=== PATIENT | male | born 1970 | race Caucasian/White ===

== ENCOUNTER 2024-07-10 10:41 | Inpatient (IN) ==
--- NOTE | 2024-07-10 11:22 | Emergency Department Note ---
Impression & Plan Cardiac asystole, Syncope and collapse, Headache ED Provider Note NAME: SHWETHA BRADFORD AGE: 53 SEX: Male INFORMANT: Patient and ED PROVIDER(S): Martinez Fan MD CHIEF COMPLAINT: Syncope PLAN: Disposition: Admitted Outpatient prescription management: none Referral: None MEDICAL DECISION MAKING: Patient presented after a syncopal episode. Reports he was feeling fine prior to the event and then collapsed. He had a nonfocal neurologic examination and no gross abnormalities on vital signs. Patient's ECG did show some T wave inversions anteriorly and inferiorly. When compared to his last ECG done in the [facility] system these were new. Patient did not have any chest pain, neck pain, arm pain or back pain to suggest cardiac ischemia. The patient was treated symptomatically with a dose of Zofran and Dilaudid and I discussed imaging. Given that his syncope event coupled with headache afterwards he underwent CT imaging. There is no signs of trauma. No ICH, SAH, or aneurysm noted. No dissection. I did discuss this with radiology. During the workup after CT imaging was completed the patient was resting in bed and then was noted to have significant asystolic pause. CODE BLUE was called. Patient's cardiac monitoring revealed approximately a 23-second pause. Repeat ECG was performed pacemaker pads were placed. Patient spontaneously recovered before CPR or atropine can be given. Consult was placed with [facility] cardiology, Dr. Billy. We were discussing the patient's case and the patient had a second episode. I asked for cardiology to come to the emergency department for in person evaluation. Patient was attended to and this episode was much more brief, lasting about 6 seconds and patient recovered spontaneously. Third ECG was performed. Similar inferior changes noted but some improvement noted anteriorly. No ST elevation noted. Patient's laboratory studies including cardiac troponin x 2 were both normal. D-dimer negative. Dr. Shaikh evaluated patient bedside and did order a stat echo. In light of the significant pauses he asked for consultation with interventional cardiology for temporary pacemaker placement and coronary angiography. I did discuss the case with Dr. Spence. He evaluated patient in the ER. Patient was taken emergently to the catheterization suite for further management. I also placed a consult with the [facility] hospitalist service. Discussed the case and patient will be admitted under Dr. Alejandre for additional workup and evaluation. 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 Vital Signs: reviewed and remarkable for mild hypertension Additional History obtained from: Patient's . Patient has been slight confusion noted at home. There is no slurred speech. No unilateral weakness described. Chronic Medical/Social Conditions affecting care: none Prior/ Outside/ External records reviewed: none Differential Diagnosis: Vasovagal event, dehydration, infection, hypoglycemia, electrolyte abnormalities, cardiac sources, intracerebral event, pulmonary embolism, seizure, toxicologic, neurologic, as well as other pathologies. Diagnostics, independently interpreted by me: ECG: Twelve-lead ECG #1 reveals sinus bradycardia 56 bpm. Inferior T wave inversion is present. When compared to ECG from the [facility] system September 2023 the inferior changes are new. Subtle nonspecific anterior changes noted as well. No ST elevation or depression noted. Twelve-lead ECG #2 reveals a normal sinus rhythm with sinus arrhythmia at [address] with inferoanterior changes. Slightly more pronounced when compared to ECG #1. No ST elevation or depression. Twelve-lead ECG #3. Normal sinus rhythm at 60 bpm. Inferior T wave inversions noted. Anteriorly T wave abnormality improved. No ST elevation. No ST depression. Cardiac Monitoring: Cardiac monitoring ordered by me: The patient was placed on continuous cardiac monitoring and observed. It revealed a prolonged asystolic pause of approximately 23 seconds. Cardiac monitoring revealed a second event of about 6 seconds. Medical decision rules: none Imaging studies: Head CT:A noncontrast CT scan of the head was performed and was negative for tumor, fracture, intracranial hemorrhage, or other acute pathology. I refer you to the EMR for further details. HPI: 53 year old Male arrives for evaluation of syncope. This started just prior to arrival and occurred after lifting weights. The patient also notes the following associated symptoms, severe headache after waking, brief lightheadedness prior to event. The patient has taken no medication for relieving factors. Current pain is rated as 7/10. Pt denies flu symptoms, fevers, chills, diaphoresis, visual changes, neck pain, chest pain, breathing difficulties, nausea, vomiting, abdominal pain, back pain, melena, hematochezia, urinary symptoms, travel, hx/famhx of aneurysm/PE, numbness, weakness, lymphadenopathy, rash, or other complaints. . PAST MEDICAL HISTORY: See Below, pt denies PAST SURGICAL HISTORY: See Below, SOCIAL HISTORY: See Below, HOME MEDICATIONS: See Below ALLERGIES: See Below VITALS: See Below PHYSICAL EXAMINATION: GENERAL: Awake, alert, uncomfortable-appearing, in no distress HENT: Normocephalic, atraumatic. Oropharynx unremarkable. EYES: Normal conjunctiva. Sclera non-icteric. PERRL. EOMI NECK: Inspection normal. Non-tender. Supple. No nuchal rigidity. FROM. No masses. RESPIRATORY: Clear to auscultation. No wheezes. No rales. Normal respiratory effort. CARDIAC: Normal rate. Normal rhythm. No murmurs. No rubs. Extremities warm and well perfused. Pulses equal. No JVD. GI: Soft, non-distended. No tenderness to palpation. No rebound or guarding. No masses. RECTAL: Deferred. MUSCULOSKELETAL: Atraumatic. Chest examination reveals no tenderness. The back is symmetrical on inspection without obvious abnormality. There is no CVA tenderness to palpation. No joint edema. LOWER EXTREMITIES: Calves are equal size bilaterally and non-tender. No edema. No discoloration. NEURO: Normal sensorium. No sensory or motor deficits noted. Normal rapid alternating movements. Normal heel canseco. SKIN: No rash or jaundice noted. PROCEDURES: none CRITICAL CARE: I have personally spent 45 minutes of critical care time in the direct management of this patient. This includes bedside care, interpretation of diagnostic studies, and testing, discussion with consultants, patient, and family members, and other required patient management activities. These minutes are in excess of all separately billable procedures. OBSERVATION NOTE: none Past Med/Surg History Problem List (Updated 07/10/24 @ 17:49 by Martinez Fan MD) Cardiac asystole (Acute) Syncope Bradycardia Headache (Acute) Syncope and collapse (Acute) Medical History GERD (gastroesophageal reflux disease) Kidney stones Surgical History Hx of tonsillectomy History of colonoscopy History of dental surgery Family History Father Heart disease Social History (Updated 07/10/24 @ 16:36 by Angie García PA-C) Smoking Status: Never smoker Second Hand Exposure: No; Do You Dip or Chew Tobacco: No; Tobacco Cessation Education Requested by Patient: No Hx Alcohol Use: Yes Alcohol type: beer, wine and hard liquor Alcohol Intake Frequency: 4 or More x per/Week Alcohol Intake Frequency Comment: 1-2 drinks/ night Hx Substance Use: No Preferred Language: Arabic Communication Ability: Effective Glass Carrier Required: No Beliefs That Will Affect Care: None Current Living Situation: Spouse Other Information That Helps Us Care for You: No Feels Safe at Home: Yes Safety Concerns: Feels Safe At This Time Assistive Devices: None Allergies Allergies Allergy/AdvReac Type Severity Reaction Status Date / Time No Known Allergies Allergy Unverified 09/20/18 01:05 Home Meds Home Medications Medication Instructions Recorded Confirmed hydrocodone 5 mg-acetaminophen 325 1 tab PO Q6 PRN Pain 09/20/18 09/20/18 mg tablet prednisone 10 mg tablet 10 mg PO UD 09/20/18 09/20/18 Results & Data (ED) Vital Signs Vital Signs - 24 hr 07/10/24 10:52 07/10/24 11:08 07/10/24 11:08 Temperature 36.0 C L Temperature Source Skin Pulse Rate 61 Pulse Rate from SpO2 Sensor Pulse Rhythm Regular Pulse Strength Normal Respiratory Rate 20 Respiratory Effort / Characteristics Non-Labored Spontaneous Respiratory Depth Normal Respiratory Pattern Regular Blood Pressure 164/82 H 143/100 H 143/100 H Blood Pressure Mean 109 110 110 Pulse Oximetry 97 Oxygen Delivery Method Room Air Sepsis Recent Fever Within 48 Hours No Sepsis New/Unexplained Change in Mental Status N/A Sepsis Action Taken by Nursing No Action Required 07/10/24 11:12 07/10/24 11:27 07/10/24 11:30 Temperature Temperature Source Pulse Rate 55 L 61 Pulse Rate from SpO2 Sensor 55 L Pulse Rhythm Pulse Strength Respiratory Rate 17 Respiratory Effort / Characteristics Respiratory Depth Respiratory Pattern Blood Pressure 147/95 H Blood Pressure Mean 110 Pulse Oximetry 96 Oxygen Delivery Method Sepsis Recent Fever Within 48 Hours Sepsis New/Unexplained Change in Mental Status Sepsis Action Taken by Nursing 07/10/24 11:30 07/10/24 11:30 07/10/24 11:30 Temperature Temperature Source Pulse Rate Pulse Rate from SpO2 Sensor Pulse Rhythm Pulse Strength Respiratory Rate Respiratory Effort / Characteristics Respiratory Depth Respiratory Pattern Blood Pressure 147/95 H 147/95 H 147/95 H Blood Pressure Mean 110 110 110 Pulse Oximetry Oxygen Delivery Method Sepsis Recent Fever Within 48 Hours Sepsis New/Unexplained Change in Mental Status Sepsis Action Taken by Nursing 07/10/24 11:30 07/10/24 11:48 07/10/24 12:00 Temperature Temperature Source Pulse Rate 57 L 63 Pulse Rate from SpO2 Sensor 56 L 60 Pulse Rhythm Pulse Strength Respiratory Rate 19 14 Respiratory Effort / Characteristics Respiratory Depth Respiratory Pattern Blood Pressure 154/78 H Blood Pressure Mean 114 Pulse Oximetry 97 93 Oxygen Delivery Method Sepsis Recent Fever Within 48 Hours Sepsis New/Unexplained Change in Mental Status Sepsis Action Taken by Nursing 07/10/24 12:00 07/10/24 12:12 07/10/24 12:21 Temperature Temperature Source Pulse Rate 58 L 55 L Pulse Rate from SpO2 Sensor 58 L 55 L Pulse Rhythm Pulse Strength Respiratory Rate 16 17 Respiratory Effort / Characteristics Respiratory Depth Respiratory Pattern Blood Pressure 154/78 H Blood Pressure Mean 114 Pulse Oximetry 96 93 Oxygen Delivery Method Room Air Sepsis Recent Fever Within 48 Hours Sepsis New/Unexplained Change in Mental Status Sepsis Action Taken by Nursing 07/10/24 12:23 07/10/24 12:24 07/10/24 12:30 Temperature Temperature Source Pulse Rate 0 L Pulse Rate from SpO2 Sensor Pulse Rhythm Pulse Strength Respiratory Rate 27 H Respiratory Effort / Characteristics Respiratory Depth Respiratory Pattern Blood Pressure 172/89 H Blood Pressure Mean 107 Pulse Oximetry Oxygen Delivery Method Sepsis Recent Fever Within 48 Hours Sepsis New/Unexplained Change in Mental Status Sepsis Action Taken by Nursing 07/10/24 12:33 07/10/24 12:35 07/10/24 12:36 Temperature Temperature Source Pulse Rate 74 68 Pulse Rate from SpO2 Sensor 72 68 Pulse Rhythm Pulse Strength Respiratory Rate 20 12 Respiratory Effort / Characteristics Respiratory Depth Respiratory Pattern Blood Pressure 155/90 H Blood Pressure Mean 116 Pulse Oximetry 98 97 Oxygen Delivery Method Room Air Room Air Sepsis Recent Fever Within 48 Hours Sepsis New/Unexplained Change in Mental Status Sepsis Action Taken by Nursing 07/10/24 12:39 07/10/24 12:45 07/10/24 12:47 Temperature Temperature Source Pulse Rate 76 0 L Pulse Rate from SpO2 Sensor 75 Pulse Rhythm Pulse Strength Respiratory Rate 28 H Respiratory Effort / Characteristics Respiratory Depth Respiratory Pattern Blood Pressure 150/85 H Blood Pressure Mean 117 Pulse Oximetry 96 Oxygen Delivery Method Room Air Sepsis Recent Fever Within 48 Hours Sepsis New/Unexplained Change in Mental Status Sepsis Action Taken by Nursing 07/10/24 12:50 07/10/24 12:51 07/10/24 12:55 Temperature Temperature Source Pulse Rate 63 Pulse Rate from SpO2 Sensor 63 Pulse Rhythm Pulse Strength Respiratory Rate 17 Respiratory Effort / Characteristics Respiratory Depth Respiratory Pattern Blood Pressure 153/94 H 154/84 H Blood Pressure Mean 116 120 Pulse Oximetry 97 Oxygen Delivery Method Room Air Sepsis Recent Fever Within 48 Hours Sepsis New/Unexplained Change in Mental Status Sepsis Action Taken by Nursing 07/10/24 13:00 07/10/24 13:05 07/10/24 13:06 Temperature Temperature Source Pulse Rate 72 Pulse Rate from SpO2 Sensor Pulse Rhythm Pulse Strength Respiratory Rate 21 Respiratory Effort / Characteristics Respiratory Depth Respiratory Pattern Blood Pressure 162/99 H 167/84 H Blood Pressure Mean 113 121 Pulse Oximetry Oxygen Delivery Method Sepsis Recent Fever Within 48 Hours Sepsis New/Unexplained Change in Mental Status Sepsis Action Taken by Nursing 07/10/24 13:09 07/10/24 13:10 07/10/24 13:15 Temperature Temperature Source Pulse Rate 74 Pulse Rate from SpO2 Sensor 74 Pulse Rhythm Pulse Strength Respiratory Rate 17 Respiratory Effort / Characteristics Respiratory Depth Respiratory Pattern Blood Pressure 161/84 H 165/100 H Blood Pressure Mean 103 125 Pulse Oximetry 97 Oxygen Delivery Method Room Air Sepsis Recent Fever Within 48 Hours Sepsis New/Unexplained Change in Mental Status Sepsis Action Taken by Nursing 07/10/24 13:15 07/10/24 13:20 07/10/24 13:33 Temperature Temperature Source Pulse Rate 66 Pulse Rate from SpO2 Sensor Pulse Rhythm Pulse Strength Respiratory Rate Respiratory Effort / Characteristics Respiratory Depth Respiratory Pattern Blood Pressure 165/100 H 154/92 H Blood Pressure Mean 125 101 Pulse Oximetry Oxygen Delivery Method Room Air Sepsis Recent Fever Within 48 Hours Sepsis New/Unexplained Change in Mental Status Sepsis Action Taken by Nursing Laboratory Data 07/10/24 11:11 07/10/24 11:11 Lab Results 07/10/24 07/10/24 07/10/24 Range/Units 11:11 11:44 12:30 WBC 6.17 (4.8-10.8) K/ul RBC 5.01 (4.70-6.10) M/uL Hgb 15.1 (14.0-18.0) g/dl Hct 44.9 (42.0-52.0) % MCV 89.6 (80.0-100.0) fL MCH 30.1 (25.0-34.0) pg MCHC 33.6 (32.0-36.0) g/dL RDW Std Deviation 38.7 (36.4-46.3) fL RDW Coeff of Stacey 11.9 (11.5-14.5) % Plt Count 151 (130-400) K/uL MPV 11.0 (9.4-12.4) fL Immature Gran % (Auto) 0.3 % Neut % (Auto) 70.9 % Lymph % (Auto) 18.8 % [place] % (Auto) 8.1 % Eos % (Auto) 1.1 % Baso % (Auto) 0.8 % Neut # (Auto) 4.37 (1.40-6.50) K/uL Lymph # (Auto) 1.16 L (1.20-3.40) K/uL [place] # (Auto) 0.50 (0.11-0.59) K/uL Eos # (Auto) 0.07 (0.00-0.50) K/uL Baso # (Auto) 0.05 (0.00-0.20) K/uL Immature Gran # (Auto) 0.02 (0.01-0.20) K/uL D-Dimer < 190 (0-500) ug/L FEU Sodium 134 L (136-145) mmol/L Potassium 4.1 (3.5-5.1) mmol/L Chloride 101 (98-107) mmol/L Carbon Dioxide 28 (21-32) mmol/L Anion Gap 5 (3-11) BUN 19 (6-23) mg/dl Creatinine 0.87 (0.6-1.4) mg/dl Est Cr Clr Drug Dosing 118.5 ml/min eGFR 103.82 BUN/Creatinine Ratio 21.8 H (10-20) Glucose 103 H (70-99(Fasting)) mg/dl Calcium 9.2 (8.6-10.3) mg/dl Magnesium 1.9 (1.7-2.4) mg/dl Total Bilirubin 0.6 (0.2-1.0) mg/dl AST 23 (13-39) U/L ALT 29 (7-52) U/L Alkaline Phosphatase 60 (34-104) U/L Troponin I High Sens 5.3 6.2 (0-20) pg/ml Total Protein 6.5 (6.0-8.3) gm/dl Albumin 4.4 (3.4-5.0) gm/dl Globulin 2.1 L (2.5-4.0) gm/dl Albumin/Globulin Ratio 2.1 H (0.9-2) TSH 1.879 (0.300-4.500) uIu/ml Urine Color Yellow Urine Appearance Clear (Clear) Urine pH 6.5 (4.5-7.5) Ur Specific Larue 1.003 (1.000-1.030) Urine Protein Negative (Negative) Urine Glucose (UA) Negative (Negative) Urine Ketones Negative (Negative) Urine Blood Negative (Negative) Urine Nitrite Negative (Negative) Urine Bilirubin Negative (Negative) Urine Urobilinogen Negative (Negative) Ur Leukocyte Esterase Negative (Negative) Lyme Disease Screen (Negative) 07/10/24 Range/Units 12:46 WBC (4.8-10.8) K/ul RBC (4.70-6.10) M/uL Hgb (14.0-18.0) g/dl Hct (42.0-52.0) % MCV (80.0-100.0) fL MCH (25.0-34.0) pg MCHC (32.0-36.0) g/dL RDW Std Deviation (36.4-46.3) fL RDW Coeff of Stacey (11.5-14.5) % Plt Count (130-400) K/uL MPV (9.4-12.4) fL Immature Gran % (Auto) % Neut % (Auto) % Lymph % (Auto) % [place] % (Auto) % Eos % (Auto) % Baso % (Auto) % Neut # (Auto) (1.40-6.50) K/uL Lymph # (Auto) (1.20-3.40) K/uL [place] # (Auto) (0.11-0.59) K/uL Eos # (Auto) (0.00-0.50) K/uL Baso # (Auto) (0.00-0.20) K/uL Immature Gran # (Auto) (0.01-0.20) K/uL D-Dimer (0-500) ug/L FEU Sodium (136-145) mmol/L Potassium (3.5-5.1) mmol/L Chloride (98-107) mmol/L Carbon Dioxide (21-32) mmol/L Anion Gap (3-11) BUN (6-23) mg/dl Creatinine (0.6-1.4) mg/dl Est Cr Clr Drug Dosing ml/min eGFR BUN/Creatinine Ratio (10-20) Glucose (70-99(Fasting)) mg/dl Calcium (8.6-10.3) mg/dl Magnesium (1.7-2.4) mg/dl Total Bilirubin (0.2-1.0) mg/dl AST (13-39) U/L ALT (7-52) U/L Alkaline Phosphatase (34-104) U/L Troponin I High Sens (0-20) pg/ml Total Protein (6.0-8.3) gm/dl Albumin (3.4-5.0) gm/dl Globulin (2.5-4.0) gm/dl Albumin/Globulin Ratio (0.9-2) TSH (0.300-4.500) uIu/ml Urine Color Urine Appearance (Clear) Urine pH (4.5-7.5) Ur Specific Larue (1.000-1.030) Urine Protein (Negative) Urine Glucose (UA) (Negative) Urine Ketones (Negative) Urine Blood (Negative) Urine Nitrite (Negative) Urine Bilirubin (Negative) Urine Urobilinogen (Negative) Ur Leukocyte Esterase (Negative) Lyme Disease Screen Negative (Negative) Administered Medications Hydromorphone HCl (Hydromorphone Inj 0.5 Mg/0.5 Ml Syr) 0.5 mg IV Q15M PRN PRN Reason: Pain Stop: 07/24/24 11:24 Last Admin: 07/10/24 11:39 Dose: 0.5 mg Documented By: HS Sodium Chloride (Nss) 1,000 mls @ 125 mls/hr IV .Q8H MALINDA Stop: 08/09/24 12:29 Last Admin: 07/10/24 12:36 Dose: 125 mls/hr Documented By: HS Miscellaneous (Icu Protocol For Hyperglycemia) 1 each N/A ACHS MALINDA Stop: 07/12/24 16:29 Last Admin: 07/10/24 17:09 Dose: 1 each Documented By: MTP Discontinued Medications Atropine Sulfate (Atropine Sulfate 0.1 Mg/Ml 10ml Syr) Confirm Administered Dose 1 mg IV .STK-MED ONE Stop: 07/10/24 12:46 Last Admin: 07/10/24 16:22 Dose: Not Given Documented By: [facility] Fentanyl Citrate (Fentanyl Citrate Pf 100 Mcg/2 Ml Vial) Confirm Administered Dose 100 mcg .ROUTE .STK-MED ONE Stop: 07/10/24 13:20 Last Increment: 07/10/24 14:23 Dose: 50 mcg Documented By: RANJITH Heparin Sodium (Porcine) (Heparin (Porcine) 1000 Unit/Ml 10 Ml (Attendant Child Activity Use Only)) Confirm Administered Dose 10,000 units .ROUTE .STK-MED ONE Stop: 07/10/24 13:20 Last Admin: 07/10/24 14:23 Dose: 5,000 units Documented By: RANJITH Heparin Sodium/Sodium Chloride (Heparin In Nss Infusion 1000 Unit/500 Ml (2 U/Ml) Bag) Confirm Administered Dose 3,000 units IV .ST-MED ONE Stop: 07/10/24 13:21 Last Admin: 07/10/24 14:24 Dose: 3,000 units Documented By: RANJITH Ioversol (Optiray 320 125ml) 112 ml IV ONCE ONE Stop: 07/10/24 12:02 Last Admin: 07/10/24 12:01 Dose: 112 ml Documented By: KRISH Ioversol (Optiray 350) Confirm Administered Dose 1 ml .ROUTE .STK-MED ONE Stop: 07/10/24 13:21 Last Admin: 07/10/24 14:24 Dose: 45 ml Documented By: RANJITH Midazolam HCl (Midazolam Hcl 1 Mg/Ml 2ml Vial) Confirm Administered Dose 2 mg .ROUTE .STK-MED ONE Stop: 07/10/24 13:20 Last Admin: 07/10/24 14:24 Dose: 2 mg Documented By: RANJITH Nicardipine HCl (Nicardipine Hcl Inj 2.5 Mg/Ml 10 Ml Amp) Confirm Administered Dose 25 mg .ROUTE .STK-MED ONE Stop: 07/10/24 13:20 Last Admin: 07/10/24 14:24 Dose: 25 mg Documented By: RANJITH Nitroglycerin/Dextrose (Nitroglycerin/D5w 100mcg/Ml 20ml Syr) Confirm Administered Dose 2,000 mcg .ROUTE .STK-Capigami ONE Stop: 07/10/24 13:21 Last Admin: 07/10/24 14:24 Dose: 2,000 mcg Documented By: RANJITH Ondansetron HCl (Ondansetron Inj 2 Mg/Ml 2 Ml Vial) 4 mg IV NOW STA Stop: 07/10/24 11:26 Last Admin: 07/10/24 11:38 Dose: 4 mg Documented By: HS Imaging Data Radiologist's Impression: Head CTA 07/10/24 11:22 CT angio head wo/w CLINICAL HISTORY: syncope, severe headache TECHNIQUE: Contiguous axial CT images of the head were acquired from the base of the skull to the vertex without intravenous contrast administration. CT angiography of the neck was performed following intravenous administration of iodinated contrast. Coronal and sagittal MIPS were obtained from the axial data set and were submitted for review. Automated dose lowering techniques and/or adjustment according to patient size were utilized for this examination. All measurements were calculated based on NASCET criteria. CT DOSE: 737.05 mGy.cm Comparison: None available at the time of this dictation. FINDINGS: CT head: There is no acute intracranial hemorrhage or evidence of acute territorial infarction. No shift of the midline structures, mass effect, or extra-axial abnormalities are shown. CTA Head: The anterior and posterior cerebral circulations are patent. No hemodynamically significant stenosis, aneurysm, dissection, or arteriovenous malformation is shown. IMPRESSION: 1. No acute intracranial hemorrhage, evidence of acute territorial infarction, or other acute intracranial disease process. 2. No occlusion, hemodynamically significant stenosis, aneurysm, dissection, or arteriovenous malformation in the major intracranial arteries. Assessment of stenosis of the internal carotid arteries is based on NASCET criteria. ACT 112: Negative or not required by law. Electronically signed by: Mickey Hall M.D. 07/10/2024 12:20 PM Discharge Plan Visit Data Chief Complaint: Syncope Stated Complaint: FAINTED EARLIER, HIT HEAD, HEADACHE, FORGETTING ED Provider: Martinez Fan Discharge Problem: Cardiac asystole, Syncope and collapse, Headache Patient Disposition: Admitted As Inpatient Discharge Instructions Interventions: ED Discharge Assessment Last Done: 07/10/24 13:33
[2024-07-10] MEDS: ONDANSETRON INJ 2 MG/ML 2 ML VIAL IV STA (11:38)
[2024-07-10] MEDS: HYDROmorphone INJ 0.5 MG/0.5 ML SYR IV PRN (11:39)
[2024-07-10 11:44] LABS: Basophils # (auto) 0.05 K/uL (0.00-0.20); Basophils % (auto) 0.8 %; Eosinophils # (auto) 0.07 K/uL (0.00-0.50); Eosinophils % (auto) 1.1 %; Hematocrit (blood only) 44.9 % (42.0-52.0); Hemoglobin 15.1 g/dl (14.0-18.0); Immature Granulocytes # (auto) 0.02 K/uL (0.01-0.20); Immature Granulocytes % (auto) 0.3 %; Lymphocytes # (auto) 1.16 K/uL (1.20-3.40); Lymphocytes % (auto) 18.8 %; Mean Corpuscular Hemoglobin 30.1 pg (25.0-34.0); Mean Corpuscular Hgb Conc 33.6 g/dL (32.0-36.0); Mean Corpuscular Volume 89.6 fL (80.0-100.0); Monocytes % (auto) 8.1 %; Neutrophils # (auto) 4.37 K/uL (1.40-6.50); Neutrophils % (auto) 70.9 %; Platelet Count 151 K/uL (130-400); RDW Coefficient of Variation 11.9 % (11.5-14.5); RDW Standard Deviation 38.7 fL (36.4-46.3); Red Blood Count 5.01 M/uL (4.70-6.10); White Blood Count 6.17 K/ul (4.8-10.8)
[2024-07-10 11:59] LABS: Albumin Globulin Ratio 2.1 (0.9-2); Albumin Level 4.4 gm/dl (3.4-5.0); BUN Creatinine Ratio 21.8 (10-20); Bilirubin,Total 0.6 mg/dl (0.2-1.0); Calcium 9.2 mg/dl (8.6-10.3); Creatinine Clr Calc Pharmacy 118.5 ml/min; Globulin 2.1 gm/dl (2.5-4.0); Magnesium 1.9 mg/dl (1.7-2.4); Potassium 4.1 mmol/L (3.5-5.1); Total Protein 6.5 gm/dl (6.0-8.3)
[2024-07-10] MEDS: OPTIRAY 320 125ml IV ONE (12:01)
[2024-07-10 12:04] LABS: Troponin I High Sensitivity 5.3 pg/ml (0-20)
[2024-07-10 12:10] LABS: D Dimer < 190 ug/L FEU (0-500)
--- NOTE | 2024-07-10 12:19 | Electrocardiogram Report ---
Test Reason : Blood Pressure : */* mmHG Vent. Rate : 56 BPM Atrial Rate : 56 BPM P-R Int : 150 ms QRS Dur : 86 ms QT Int : 400 ms P-R-T Axes : 14 12 -11 degrees QTcB Int : 386 ms Sinus bradycardia Nonspecific T wave abnormality Inferior leads Abnormal ECG No previous ECGs available Confirmed by Uvaldo Jimenez ([id number]) on 07/10/2024 12:19:33 PM Referred By: Confirmed By: Uvaldo Jimenez
--- NOTE | 2024-07-10 12:21 | CT Scan Report ---
CT angio head wo/w CLINICAL HISTORY: syncope, severe headache TECHNIQUE: Contiguous axial CT images of the head were acquired from the base of the skull to the shahid fletcher without intravenous contrast administration. CT angiography of the neck was performed following intravenous administration of iodinated contrast. Coronal and sagittal MIPS were obtained from the ax ial data set and were submitted for review. Automated dose lowering techniques and/or adjustment acc ording to patient size were utilized for this examination. All measurements were calculated based on NASCET criteria. CT DOSE: 737.05 mGy.cm Comparison: None available at the time of this dictation. FINDINGS: CT head: There is no acute intracranial hemorrhage or evidence of acute territorial infarction. No sh ift of the midline structures, mass effect, or extra-axial abnormalities are shown. CTA Head: The anterior and posterior cerebral circulations are patent. No hemodynamically significan t stenosis, aneurysm, dissection, or arteriovenous malformation is shown. IMPRESSION: 1. No acute intracranial hemorrhage, evidence of acute territorial infarction, or other acute intrac ranial disease process. 2. No occlusion, hemodynamically significant stenosis, aneurysm, dissection, or arteriovenous malfor mation in the major intracranial arteries. Assessment of stenosis of the internal carotid arteries is based on NASCET criteria. ACT 112: Negative or not required by law. Electronically signed by: Mickey Hall M.D. 07/10/2024 12:20 PM
[2024-07-10 12:23] LABS: Appearance Urine Clear (Clear); Bilirubin Urine Negative (Negative); Blood Urine Negative (Negative); Color Urine Yellow; Glucose Urine UA Negative (Negative); Ketones Urine Negative (Negative); Leukocyte Esterase Urine Negative (Negative); Nitrite Urine Negative (Negative); Protein Urine Negative (Negative); Specific Gravity Urine 1.003 (1.000-1.030); Urobilinogen Urine Negative (Negative); pH Urine 6.5 (4.5-7.5)
[2024-07-10] MEDS: SODIUM CHLORIDE 0.9% 1,000 ML IV SCH (12:36)
[2024-07-10 13:18] LABS: Troponin I High Sensitivity 6.2 pg/ml (0-20)
--- NOTE | 2024-07-10 13:44 | History & Physical Report ---
Date of Service July 10, 2024 Assessment & Plan (1) Syncope and collapse: (2) Bradycardia: (3) Headache: Plan This is a 53yo M with PMH of GERD who presented to ED for evaluation of syncope. Was lifting weights earlier today at the [facility] and had a witnessed syncopal event as well as prolonged pause (>10 seconds) while in ED. Syncope and collapse Bradycardia Presented to ED following syncopal event at gym that occurred while lifting weights Came to ED with headache following syncope and collapse- CTA head without any acute findings While in ED, patient noted to have a prolonged pause (>10 sec). Returned to NSR prior to any atropine being given No preceding CP or SOB. Initial troponin negative EKG showed sinus bradycardia with TWI in III and avf (new since Sep 2023 EKG in [facility]) Evaluated by Dr. Billy of cardiology in ED - stat echo obtained, Dr. Spence took patient to cardiac suite for temp wire placement and diagnostic cardiac catheterization Admit to ICU following wire placement, Dr. Kramer aware Per Dr. Spence's post cardiac cath report: (07/10/24) 1. Underwent successful insertion of a transvenous pacemaker via the right IJ approach 2. Normal epicardial coronary arteries 3. Continue workup for asystole. Consider permanent pacemaker implantation Temp wire in place, on bedrest. Management per ICU, cardiology consulted TSH WNL Lyme screen negative, awaiting other tick serology Keep K 4.5-5 and Mag >2 Headache Post-fall, improved since admission Head CTA without acute findings Code status: FULL PCP: Yohannes Dispo: admit to ICU for monitoring Patient seen in collaboration with Dr. Alejandre. Please see addendum. I spent a total of 75 minutes coordinating, documenting, and providing care for this patient excluding time spent in the performance of separately billed services. History of Present Illness Chief Complaint: syncope Primary Care Provider: Uvaldo Sheffield MD This is a 53yo M with PMH of GERD who presented to ED for evaluation of syncope. Was lifting weights earlier today at the [facility] and had a witnessed syncopal event. Endorses some lightheadedness prior to collapse and a headache after coming to. Patient then came to ED for further evaluation and while in ED a shai chakraborty was called after a> 10 sec pause with asystole on the monitor. Patient came to on his own and then it occurred again for 8 seconds. Was evaluated by cardiology in ED and bedside echo performed. No CP or SOB but given significant pauses, was taken to cardiac dairy laboratory technician for Dr. Spence to place a temporary pacing wire, cardiac cath. Evaluated in 109 following placement of temporary pacer. Feeling well postprocedure. Endorses some inability to take a deep breath but oxygen level okay at 96% on room air. Denies any lightheadedness, headache, palpitations, chest pain, nausea, vomiting, abdominal pain, dysuria, diarrhea or constipation. Non-smoker, drinks 1-2 / night, no h/o withdrawal. Allergies Allergy/AdvReac Type Severity Reaction Status Date / Time No Known Allergies Allergy Unverified 09/20/18 01:05 Past Med/Surg History Problem List (Updated 07/10/24 @ 17:49 by Martinez Fan MD) Cardiac asystole (Acute) Syncope Bradycardia Headache (Acute) Syncope and collapse (Acute) Medical History GERD (gastroesophageal reflux disease) Kidney stones Surgical History Hx of tonsillectomy History of colonoscopy History of dental surgery Family History Father Heart disease Social History (Updated 07/10/24 @ 16:36 by Angie García PA-C) Smoking Status: Never smoker Second Hand Exposure: No; Do You Dip or Chew Tobacco: No; Tobacco Cessation Education Requested by Patient: No Hx Alcohol Use: Yes Alcohol type: beer, wine and hard liquor Alcohol Intake Frequency: 4 or More x per/Week Alcohol Intake Frequency Comment: 1-2 drinks/ night Hx Substance Use: No Preferred Language: Bangladeshi Communication Ability: Effective Core Stacker Required: No Beliefs That Will Affect Care: None Current Living Situation: Spouse Other Information That Helps Us Care for You: No Feels Safe at Home: Yes Safety Concerns: Feels Safe At This Time Assistive Devices: None Review of Systems Review of Systems: At least ten systems reviewed and negative except as noted in the HPI. Physical Exam Physical Exam: General Appearance: WD/WN, vitals as above, NAD, sitting up in bed, pleasant, conversing easily Head: normocephalic, atraumatic Eyes: normal inspection, PERRL, conjunctivae normal, anicteric sclerae ENT: external ear and nose normal, oropharynx normal Neck: normal visual inspection + R IJ wire visualized, dressing c/d/i Respiratory: normal respiratory effort, lungs clear to auscultation, no wheeze, rales, rhonchi. No accessory muscle use Cardiovascular: regular rate, rhythm, no murmur, normal peripheral pulses, no BLE edema. Vessels: no JVD Chest: normal inspection of chest Abdomen/GI: normal bowel sounds, soft, nontender, no hepatosplenomegaly Extremities/Musculoskeletal: no cyanosis or clubbing, extremities motor strength 5/5 Neurologic: PERRL, EOMI, accommodation nl, no face palsy, no dysarthria, CN's II-XI intact bilaterally and moves all extremities Psychiatric: A+Ox3, euthymic affect Skin: no rashes, normal color, warm/dry Results & Data Results & Data Vital Signs (Past 12 Hours) Vital Signs Temp Pulse Resp BP Pulse Ox O2 Del Method 07/10/24 13:20 66 154/92 H 07/10/24 13:15 165/100 H 07/10/24 13:15 165/100 H 07/10/24 13:10 161/84 H 07/10/24 13:09 74 17 97 Room Air 07/10/24 13:06 72 21 07/10/24 13:05 167/84 H 07/10/24 13:00 162/99 H 07/10/24 12:55 154/84 H 07/10/24 12:51 63 17 97 Room Air 07/10/24 12:50 153/94 H 07/10/24 12:47 0 L 07/10/24 12:45 150/85 H 07/10/24 12:39 76 28 H 96 Room Air 07/10/24 12:36 68 12 97 Room Air 07/10/24 12:35 155/90 H 07/10/24 12:33 74 20 98 Room Air 07/10/24 12:30 172/89 H 07/10/24 12:24 27 H 07/10/24 12:23 0 L 07/10/24 12:21 55 L 17 93 Room Air 07/10/24 12:12 58 L 16 96 07/10/24 12:00 154/78 H 07/10/24 12:00 154/78 H 07/10/24 11:48 63 14 93 07/10/24 11:30 57 L 19 97 07/10/24 11:30 147/95 H 07/10/24 11:30 147/95 H 07/10/24 11:30 147/95 H 07/10/24 11:30 147/95 H 07/10/24 11:27 61 07/10/24 11:12 55 L 17 96 07/10/24 11:08 143/100 H 07/10/24 11:08 143/100 H 07/10/24 10:52 36.0 C L 61 20 164/82 H 97 Room Air Laboratory Results Short CBC 07/10/24 Range/Units 11:11 WBC 6.17 (4.8-10.8) K/ul Hgb 15.1 (14.0-18.0) g/dl Hct 44.9 (42.0-52.0) % Plt Count 151 (130-400) K/uL BMP 07/10/24 11:11 Sodium 134 L Potassium 4.1 Chloride 101 Carbon Dioxide 28 BUN 19 Creatinine 0.87 Glucose 103 H Calcium 9.2 Liver Function 07/10/24 Range/Units 11:11 Total Bilirubin 0.6 (0.2-1.0) mg/dl AST 23 (13-39) U/L ALT 29 (7-52) U/L Alkaline Phosphatase 60 (34-104) U/L Albumin 4.4 (3.4-5.0) gm/dl Urine 07/10/24 Range/Units 11:44 Urine Color Yellow Urine Appearance Clear (Clear) Urine pH 6.5 (4.5-7.5) Ur Specific [place] 1.003 (1.000-1.030) Urine Protein Negative (Negative) Urine Glucose (UA) Negative (Negative) Diagnostic Findings Head CTA 07/10/24 11:22 CT angio head wo/w CLINICAL HISTORY: syncope, severe headache TECHNIQUE: Contiguous axial CT images of the head were acquired from the base of the skull to the vertex without intravenous contrast administration. CT angiography of the neck was performed following intravenous administration of iodinated contrast. Coronal and sagittal MIPS were obtained from the axial data set and were submitted for review. Automated dose lowering techniques and/or adjustment according to patient size were utilized for this examination. All measurements were calculated based on NASCET criteria. CT DOSE: 737.05 mGy.cm Comparison: None available at the time of this dictation. FINDINGS: CT head: There is no acute intracranial hemorrhage or evidence of acute territorial infarction. No shift of the midline structures, mass effect, or extra-axial abnormalities are shown. CTA Head: The anterior and posterior cerebral circulations are patent. No hemodynamically significant stenosis, aneurysm, dissection, or arteriovenous malformation is shown. IMPRESSION: 1. No acute intracranial hemorrhage, evidence of acute territorial infarction, or other acute intracranial disease process. 2. No occlusion, hemodynamically significant stenosis, aneurysm, dissection, or arteriovenous malformation in the major intracranial arteries. Assessment of stenosis of the internal carotid arteries is based on NASCET criteria. ACT 112: Negative or not required by law. Electronically signed by: Mickey Hall M.D. 07/10/2024 12:20 PM ECG Additional Comments: Sinus bradycardia at 56 bpm, inferior lead TWI noted in III and avf (new since Sep 2023, per [facility] chart review) Code Status & VTE Plan VTE Prophylaxis Plan VTE Prophylaxis will be ordered: Yes Supervising Physician Co-Signing Physician Notes 53-year-old male with history of GERD, no other significant personal medical history who was working out today at the gym and had a witnessed syncopal event associated with lightheadedness and headache. He drove back to home and after discussing with his , he presented to the ED where he was noted to have 2 episodes of prolonged pause (asystole), 20 seconds and 8 seconds. Patient converted back to NSR before any atropine was able to be given. Patient denied any chest pain. Patient was evaluated by cardiology emergently and taken to [facility] for temporary wire placement and cardiac cath. Labs fairly WNL, potassium 4.1 and magnesium 1.9, renal function WNL, troponin x 2 negative, UA negative for infection, Lyme screen negative. Get TSH, patient got stat echo/read pending, cardiology on board, patient will be transferred to ICU after [facility]. Syncopal episodes: Secondary to arrhythmia Asystole s/p temporary pacing and cardiac cath today. Cardiology on board. In ICU after cardiac cath. Continue with IV fluids, maintain potassium above 4 and magnesium above 2 Administer 1 Mg IV magnesium. Await ECHO and TSH. Lyme screen neg. Lipid panel and A1c in AM. On exam: GENERAL: Alert and oriented x3. NAD, on RA. HEENT: No pallor, no icterus. Pupils equal, round and reactive to light. Oral mucosa moist. NECK: No JVD, no neck masses. Rt IJ temp pacer noted. HEART: S1 and S2 heard. Regular rate and rhythm. No murmur, no gallop. RESPIRATORY SYSTEM: Normal AP diameter. No accessory muscle use. No wheezing, no crackles. ABDOMEN: Soft, bowel sounds present, nontender, no distention. CENTRAL NERVOUS SYSTEM: No facial droop. Speech is clear. Obeys simple commands. Moves extremities. EXTREMITIES: No edema, no erythema seen. I have seen and examined the patient and have discussed the case with the provider above. I agree with the assessment and plan as stated. time spent: 30 min.
--- NOTE | 2024-07-10 13:58 | Cardiology Progress Note ---
Date of Service July 10, 2024 Assessment & Plan (1) Bradycardia: (2) Syncope: (3) Headache: (4) Syncope and collapse: Plan 53 yo man presenting s/p syncopal events while lifting weights No trauma Patient drove home - spoke with his brought him to the ED In ED, patient noted to have a prolonged pause (>10 sec) Pacing Pads placed on patient Before atropine was given, patient returned to NSR No Afib on presentation Patient denied any chest pain preceding the episode Noted to have T wave inversion (TWI) infero-apical leads Initial Troponin was WNL No known thyroid disease No Tic bites/ No new rash No fevers or chills or previous bouts of endocarditis No known Congenital Heart Disease Plans: * Case discussed with ED and Interventional Cardiology Staff * Plans for STAT ECHO * Plans for Temp Wire Placement * Check TSH * Check Lyme Titers * k+ goal 4.5-5 * Mag goal >2 * Given TWI - Plans to evaluate Coronaries 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 * Patient is not on beta blockers/ca++ channel blockers/digoxin or antiarrhythmics Connor Blily Subjective Events Overnight: * None reported Subjective: * Syncopal Event at the Gym Review of Systems Review of Systems: All systems reviewed & are unremarkable except as noted in HPI & below Physical Exam Physical Exam: Patient in NAD No elevation in JVP S1S2 - Potential aortic ejection sound, 2/6 systolic murmur in suprasternal notch CTA B on anterior exam Pacing Pads on chest No LE edema Warm and well-perfused No rash Results & Data Vital Signs (Past 12 Hours) Vital Signs Temp Pulse Resp BP Pulse Ox O2 Del Method 07/10/24 13:33 Room Air 07/10/24 13:20 66 154/92 H 07/10/24 13:15 165/100 H 07/10/24 13:15 165/100 H 07/10/24 13:10 161/84 H 07/10/24 13:09 74 17 97 Room Air 07/10/24 13:06 72 21 07/10/24 13:05 167/84 H 07/10/24 13:00 162/99 H 07/10/24 12:55 154/84 H 07/10/24 12:51 63 17 97 Room Air 07/10/24 12:50 153/94 H 07/10/24 12:47 0 L 07/10/24 12:45 150/85 H 07/10/24 12:39 76 28 H 96 Room Air 07/10/24 12:36 68 12 97 Room Air 07/10/24 12:35 155/90 H 07/10/24 12:33 74 20 98 Room Air 07/10/24 12:30 172/89 H 07/10/24 12:24 27 H 07/10/24 12:23 0 L 07/10/24 12:21 55 L 17 93 Room Air 07/10/24 12:12 58 L 16 96 07/10/24 12:00 154/78 H 07/10/24 12:00 154/78 H 07/10/24 11:48 63 14 93 07/10/24 11:30 57 L 19 97 07/10/24 11:30 147/95 H 07/10/24 11:30 147/95 H 07/10/24 11:30 147/95 H 07/10/24 11:30 147/95 H 07/10/24 11:27 61 07/10/24 11:12 55 L 17 96 07/10/24 11:08 143/100 H 07/10/24 11:08 143/100 H 07/10/24 10:52 36.0 C L 61 20 164/82 H 97 Room Air Laboratory Results Cardiac Enzymes 07/10/24 07/10/24 Range/Units 11:11 12:30 AST 23 (13-39) U/L Troponin I High Sens 5.3 6.2 (0-20) pg/ml CBC 07/10/24 Range/Units 11:11 WBC 6.17 (4.8-10.8) K/ul RBC 5.01 (4.70-6.10) M/uL Hgb 15.1 (14.0-18.0) g/dl Hct 44.9 (42.0-52.0) % Plt Count 151 (130-400) K/uL Neut # (Auto) 4.37 (1.40-6.50) K/uL Lymph # (Auto) 1.16 L (1.20-3.40) K/uL [place] # (Auto) 0.50 (0.11-0.59) K/uL Eos # (Auto) 0.07 (0.00-0.50) K/uL Baso # (Auto) 0.05 (0.00-0.20) K/uL Comprehensive Metabolic Panel 07/10/24 Range/Units 11:11 Sodium 134 L (136-145) mmol/L Potassium 4.1 (3.5-5.1) mmol/L Chloride 101 (98-107) mmol/L Carbon Dioxide 28 (21-32) mmol/L BUN 19 (6-23) mg/dl Creatinine 0.87 (0.6-1.4) mg/dl Glucose 103 H (70-99(Fasting)) mg/dl Calcium 9.2 (8.6-10.3) mg/dl AST 23 (13-39) U/L ALT 29 (7-52) U/L Alkaline Phosphatase 60 (34-104) U/L Total Protein 6.5 (6.0-8.3) gm/dl Albumin 4.4 (3.4-5.0) gm/dl Intake and Output 07/09/24 07/10/24 07/10/24 22:59 06:59 14:59 Other: Weight 94.4 kg Patient Weight 07/11/24 06:59 Weight 94.4 kg Medications Administered Current Inpatient Medications Hydromorphone HCl (Hydromorphone Inj 0.5 Mg/0.5 Ml Syr) 0.5 mg IV Q15M PRN PRN Reason: Pain Stop: 07/24/24 11:24 Last Admin: 07/10/24 11:39 Dose: 0.5 mg Sodium Chloride (Nss) 1,000 mls @ 125 mls/hr IV .Q8H MALINDA Stop: 08/09/24 12:29 Last Admin: 07/10/24 12:36 Dose: 125 mls/hr
[2024-07-10] MEDS: fentaNYL citrate PF 100 MCG/2 ML VIAL ONE (14:23)
[2024-07-10] MEDS: HEPARIN (PORCINE) 1000 UNIT/ML 10 ML (CATH LAB USE ONLY) ONE (14:23)
[2024-07-10] MEDS: NITROGLYCERIN/D5W 100MCG/ML 20ML SYR ONE (14:24)
[2024-07-10] MEDS: MIDAZOLAM HCL 1 MG/ML 2ML VIAL ONE (14:24)
[2024-07-10] MEDS: niCARdipine HCL INJ 2.5 MG/ML 10 ML AMP ONE (14:24)
[2024-07-10] MEDS: OPTIRAY 350 ONE (14:24)
--- NOTE | 2024-07-10 14:49 | Pre Anesthesia Assessment ---
Date of Service July 10, 2024 Pre Sedation Assessment Vital Signs Temp Pulse Resp BP Pulse Ox O2 Del Method 07/10/24 13:33 Room Air 07/10/24 13:20 66 154/92 H 07/10/24 13:15 165/100 H 07/10/24 13:15 165/100 H 07/10/24 13:10 161/84 H 07/10/24 13:09 74 17 97 Room Air 07/10/24 13:06 72 21 07/10/24 13:05 167/84 H 07/10/24 13:00 162/99 H 07/10/24 12:55 154/84 H 07/10/24 12:51 63 17 97 Room Air 07/10/24 12:50 153/94 H 07/10/24 12:47 0 L 07/10/24 12:45 150/85 H 07/10/24 12:39 76 28 H 96 Room Air 07/10/24 12:36 68 12 97 Room Air 07/10/24 12:35 155/90 H 07/10/24 12:33 74 20 98 Room Air 07/10/24 12:30 172/89 H 07/10/24 12:24 27 H 07/10/24 12:23 0 L 07/10/24 12:21 55 L 17 93 Room Air 07/10/24 12:12 58 L 16 96 07/10/24 12:00 154/78 H 07/10/24 12:00 154/78 H 07/10/24 11:48 63 14 93 07/10/24 11:30 57 L 19 97 07/10/24 11:30 147/95 H 07/10/24 11:30 147/95 H 07/10/24 11:30 147/95 H 07/10/24 11:30 147/95 H 07/10/24 11:27 61 07/10/24 11:12 55 L 17 96 07/10/24 11:08 143/100 H 07/10/24 11:08 143/100 H 07/10/24 10:52 36.0 C L 61 20 164/82 H 97 Room Air Cardiovascular RRR, no murmur, no edema Respiratory normal respiratory effort, lungs clear to auscultation Pre-Sedation Airway Assessment Smoking Status: Never smoker Mallampati 2 ASA 1 Notes The planned sedation has been discussed with the patient. Informed Consent was obtained. I have identified the patient, determined the appropriateness of sedation and have assessed the patient immediately prior to the procedure. All medicine(s) and interventions are by my order.
--- NOTE | 2024-07-10 14:53 | Post Anesthesia Assessment ---
Date of Service July 10, 2024 Post Sedation Assessment Vital Signs Temp Pulse Resp BP Pulse Ox O2 Del Method 07/10/24 13:33 Room Air 07/10/24 13:20 66 154/92 H 07/10/24 13:15 165/100 H 07/10/24 13:15 165/100 H 07/10/24 13:10 161/84 H 07/10/24 13:09 74 17 97 Room Air 07/10/24 13:06 72 21 07/10/24 13:05 167/84 H 07/10/24 13:00 162/99 H 07/10/24 12:55 154/84 H 07/10/24 12:51 63 17 97 Room Air 07/10/24 12:50 153/94 H 07/10/24 12:47 0 L 07/10/24 12:45 150/85 H 07/10/24 12:39 76 28 H 96 Room Air 07/10/24 12:36 68 12 97 Room Air 07/10/24 12:35 155/90 H 07/10/24 12:33 74 20 98 Room Air 07/10/24 12:30 172/89 H 07/10/24 12:24 27 H 07/10/24 12:23 0 L 07/10/24 12:21 55 L 17 93 Room Air 07/10/24 12:12 58 L 16 96 07/10/24 12:00 154/78 H 07/10/24 12:00 154/78 H 07/10/24 11:48 63 14 93 07/10/24 11:30 57 L 19 97 07/10/24 11:30 147/95 H 07/10/24 11:30 147/95 H 07/10/24 11:30 147/95 H 07/10/24 11:30 147/95 H 07/10/24 11:27 61 07/10/24 11:12 55 L 17 96 07/10/24 11:08 143/100 H 07/10/24 11:08 143/100 H 07/10/24 10:52 36.0 C L 61 20 164/82 H 97 Room Air Recovery Score Activity: Moves 4 extremities Respiration: Deep Breath/Cough Circulation: +/-20% PreAnes Value Consciousness: Fully Awake Oxygen Saturation: > 92% On Room Air Discharge Sedation Level of Care: Fast Track Phase II Post Sedation Plan On clinical assessment, the patient appears to have tolerated the sedation without complications. Patient is recovering as anticipated. Patient will continue to be monitored by nursing and may be discharged when sedation discharge criteria are met per below protocol. Upon Completions of procedure up to 15 minutes continue every 5 minute vital signs and the P.A.R. score; then discharge to a Phase I or Fast Track to Phase II per the following guidelines: * Discharge Patient to appropriate Phase II area if PAR is 8 or greater or return to pre- procedure baseline. The post - procedure orders will be as directed. * If PAR score is less than 8 or not return to pre-procedure baseline then patient will follow Phase I monitoring till PAR is reached for Phase II. The Phase I may be done in procedure room or may call to secure a Phase I area. * If naloxone or flumazenil are used for reversal, hold in Phase I for continued monitoring from when last reversal dose was given for a minimum of 60 minutes or longer pending the nurse and/or physician discretion of patient condition before discharge to Phase II. Please call the Sedation Physician to re-evaluate and complete post-note for discharge to Phase II area. Do NOT discharge from procedure sedation or Phase 1 until post- sedation evaluation note is complete by procedure /sedation MD Sedation Discharge Instructions to be given to the patient at discharge to home. [facility] Procedure Codes (Charges) Indication for Procedure Indication for procedure: asystole Sedation/Anesthesia Procedure 1: Sedation/Anesthesia: 96299 Mod Sedation by the same physician;Init15 Min Child Age 5 & Up (initial 15 min, start 1352) Total Sedation Time (minutes): 28 Procedure 2: Sedation/Anesthesia: 36120 Mod Sedation by the same physician; Ea [id number] Minutes (additional 13 min, end 1420) Total Sedation Time (minutes): 28
--- NOTE | 2024-07-10 15:03 | Cardiac Catheterization ---
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 Cardiac Status Clinical evaluation leading to the procedure CAD Presenation: Sx unlikely to be ischemic Anginal Classification: No Symptoms Heart Failure: No Cardiogenic Shock within 24 Hours: No Cardiac Arrest within 24 Hours: Yes Imaging Studies Past 6 Months: No Stress Studies Past 6 Months: No Coronary Anatomy Dominant: Right Left Main (% Stenosis): Normal LAD (% Stenosis): Normal D1 (% Stenosis): Normal D2 (% Stenosis): Normal D3 (% Stenosis): Normal Circumflex (% Stenosis): Normal OM1 (% Stenosis): Normal OM2 (% Stenosis): Normal L PL1 (% Stenosis): Normal RCA (% Stenosis): Normal R PDA (% Stenosis): Normal R PL1 (% Stenosis): Normal Diagnostic Physicians Name: Mitchel Spence MD, PhD Closure Device Percutaneous Entry Location: Radial and IJ Closure Device: Radial Band Recommendations: Medical Therapy and/or Counseling Cardiac Cath Procedure Full Procedure Date July 10, 2024 Pre-Procedure Diagnosis Pre-Procedure Diagnosis: Arrhythmia (Recurrent asystole) AUC Score AUC Score: 09 Post-Procedure Diagnosis Post-Procedure Diagnosis: Normal Coronary Arteries and Cardiothoracic Finding (Successful transvenous pacemaker insertion) Procedure(s) Performed Procedure(s) Performed: Coronary Angiography, Temporary Pacemaker and Ultrasound Guided Vascular Access Performance Improvement Manager Mitchel Spence MD, PhD Estimated Blood Loss Estimated Blood Loss: 5 cc Medication(s) Medication(s): Fentanyl, Heparin, Lidocaine 1%, Nicardipine, Nitroglycerin and Versed Summary of Findings Brief description: Patient was brought emergently to the cardiac catheterization suite where he was shaved and prepped in a sterile fashion. Sedated using IV Versed and fentanyl. Soft tissues of the right neck were anesthetized using 1 mL of 1% Xylocaine. Using the ultrasound for guidance and a 4 Albanian micropuncture kit the right internal jugular vein was accessed. The micropuncture sheath was then exchanged over a 0.035 wire for a 7 Albanian venous sheath. Under fluoroscopic guidance the transvenous pacing wire was advanced through the sheath and into the right ventricle with the balloon inflated. The balloon was then deflated. After testing, patient was paced at 70 bpm and 2.5 mA. We then turned our attention to coronary angiography. Soft tissue the right wrist were anesthetized using 2 mL 1% Xylocaine. Using the ultrasound for guidance (image saved), the right radial artery was accessed and a 6 Albanian radial artery glide sheath was placed. All catheters were advanced and exchanged over a 0.035 J-tip wire. The patient was provided anticoagulation with IV heparin and antispasmodics including nicardipine and nitroglycerin. Left coronary angiography in orthogonal views with a 5 Albanian JL 3.5 diagnostic catheter. Right coronary angiography in orthogonal views with a 5 Albanian [place] 4 diagnostic catheter. Diagnostic catheters were removed. Radial artery sheath was removed. Hemostasis was obtained using the TR band. The right IJ sheath was sutured in place. It was dressed with a Biopatch and Tegaderm. Patient remained hemodynamically stable and was returned to the recovery area. This ended the case. Coronary angiography findings: LTC-[id number] vessel bifurcating into LAD and circumflex. No angiographically evident disease. GLP-xowby-zomrxyp and transapical. Provides 3 large diagonal branches and several large septal branches. There is no angiographically significant disease in the LAD or its branches. LCx-this is a large-caliber and nondominant vessel. Travels in the AV groove giving 2 atrial branches and 2 small obtuse marginal branches before it terminates as a large branching posterolateral. There is no angiographically significant disease in the circumflex or its branches. RCA-this is large caliber and dominant. Proximally is tortuous. Distally it bifurcates into a large PDA and a large multi branching posterolateral. There is no angiographically evident disease in the RCA or its branches. Summary: 1. Successful insertion of a transvenous pacemaker via the right IJ approach 2. Normal epicardial coronary arteries 3. Continue workup for asystole. Consider permanent pacemaker implantation. Hemodynamics Rest Ao:: 122/79 mmHg Final Ao: 124/90 mmHg LV: Not performed Recommendations Recommendations: Medical Therapy and/or Counseling Radiation Exposure (mGy) 530 mGy, fluoroscopy time 4.3 minutes Contrast (mls) 45 cc Anesthesia Fentanyl 50 mcg, Versed 2 mg IV. Start time 1352, end time 1420 Procedural Complication(s) None Disposition ICU I attest to the content of the Intraoperative Record and any orders documented therein. Any exceptions are noted below. [facility] Card Cath Procedure Codes Cardiac Catheterization Procedure 1: Cardiovascular Cath Procedures: 64278 Coronaries Therapeutic Services & Ancillary Procedure 1: Cardiovascular Tx and Anc Procedures: 37162 Temp Pacer Insert Procedure 2: Cardiovascular Tx and Anc Procedures: 46793 Ultrasonic Guidance Vascular Access Moderate Sedation Procedure 1: Sedation/Anesthesia: 51189 Mod Sedation by the same physician;Init15 Min Child Age 5 & Up (Initial 15 min. Start time 1352) Procedure 2: Sedation/Anesthesia: 21402 Mod Sedation by the same physician; Ea [id number] Minutes (Additional 13 min, end time 1420) PG Care Time/CCT Total # of Minutes Spent Total Time Spent with Patient: Total time spent is greater than 50% in coordination of care (as documented) at patient's floor/unit and/or counseling patient:
--- NOTE | 2024-07-10 15:31 | Critical Care Consultation ---
Date of Consultation July 10, 2024 Assessment & Plan (1) Syncope: (2) Bradycardia: Plan Impression: 53-year-old male without prior medical history presenting with syncope and headache and found to have a sinus arrest without ventricular escape rhythm which spontaneously terminated. He is now status post temporary pacing wire and hemodynamically stable. Recommendation: 1. Sinus arrest without ventricular escape rhythm and syncopal episode. Coronaries by report were unremarkable. Await formal echocardiogram. Will defer to cardiology electrophysiology consultation however given the severity of the patient's symptoms and what appears to be sinus arrest/asystole, this appears to be class I indication for pacemaker provided there is no easily reversible alternative etiology identified. His electrolytes appear stable and he is not using any AV guillermina blocking agents prior to this episode. Will continue to reassess his underlying intrinsic rhythm and decide what to do moving forward. While the temporary pacing wires in place we will keep on bedrest. 2. ICU electrolyte replacement protocol will be initiated. 3. The patient is going to maintain bedrest for prolonged period of time will initiate DVT prophylaxis. 4. 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 May have been related to potential low-flow and transient cerebral anoxia. Continue to follow clinically at this point time. 5. Mild hyponatremia: Incidental finding. Asymptomatic. Continue to follow at this point in time. Will follow in the ICU as long as the temporary pacing wires in place. The above recommendations and plan were discussed with the patient as well as with his at bedside and with the critical care nurse. A total of 40 minutes in critical care time was spent evaluation stabilization of this patient History of Present Illness Attending Physician: Jacky Alejandre MD History of Present Illness Asked by hospitalist to assist in evaluation management this patient with sinus arrest/asystole status post temporary pacing wire. History is obtained from discussion with patient as well as review the electronic medical record. Patient is a 53-year-old male without significant past medical history who presented to the emergency room earlier today with complaints of syncopal episode. The patient was at the gym working out and was brought to the emergency room with headaches as well. CT scan of the head was obtained which showed no abnormality. While in the emergency room the patient suffered a sinus arrest/asystolic event. This terminated spontaneously with the patient was taken to the Wildlife Science [facility] where his coronaries were interrogated and demonstrated no coronary disease. A temporary pacing wire was placed and the patient was paced at 70 bpm and brought to the ICU. He is now hemodynamically stable and without complaints. No prior history of cardiac issues. No pertinent family history. Lyme screens were negative. Electrolytes were unremarkable. He is not on any AV guillermina blocking agents Allergies Allergy/AdvReac Type Severity Reaction Status Date / Time No Known Allergies Allergy Unverified 09/20/18 01:05 Patient History Medical History (Updated 07/10/24 @ 14:07 by Connor Billy MD) GERD (gastroesophageal reflux disease) Kidney stones Surgical History (Updated 07/10/24 @ 14:02 by Angie García PA-C) Hx of tonsillectomy History of colonoscopy History of dental surgery Social History Smoking Status: Never smoker Feels Safe at Home: Yes Review of Systems Review of Systems: All systems reviewed & are unremarkable except as noted in Subjective Physical Exam Constitutional: WD/WN, vitals as above Neck: trachea midline, no thyromegaly Respiratory: normal respiratory effort, lungs clear to auscultation Cardiovascular: RRR, no murmur, no edema Gastrointestinal (Abdomen): normal bowel sounds, soft, nontender, no hepatosplenomegaly Musculoskeletal: Extremities: extremities normal to inspection Skin: no rashes, warm and dry Neurologic: Nonfocal exam Lymphatic: no cervical lymphadenopathy Results & Data Results & Data Vital Signs (Past 12 Hours) Vital Signs Temp Pulse Resp BP Pulse Ox O2 Del Method 07/10/24 15:00 82 15 96 07/10/24 14:51 147/95 H 07/10/24 13:33 Room Air 07/10/24 13:20 66 154/92 H 07/10/24 13:15 165/100 H 07/10/24 13:15 165/100 H 07/10/24 13:10 161/84 H 07/10/24 13:09 74 17 97 Room Air 07/10/24 13:06 72 21 07/10/24 13:05 167/84 H 07/10/24 13:00 162/99 H 07/10/24 12:55 154/84 H 07/10/24 12:51 63 17 97 Room Air 07/10/24 12:50 153/94 H 07/10/24 12:47 0 L 07/10/24 12:45 150/85 H 07/10/24 12:39 76 28 H 96 Room Air 07/10/24 12:36 68 12 97 Room Air 07/10/24 12:35 155/90 H 07/10/24 12:33 74 20 98 Room Air 07/10/24 12:30 172/89 H 07/10/24 12:24 27 H 07/10/24 12:23 0 L 07/10/24 12:21 55 L 17 93 Room Air 07/10/24 12:12 58 L 16 96 07/10/24 12:00 154/78 H 07/10/24 12:00 154/78 H 07/10/24 11:48 63 14 93 07/10/24 11:30 57 L 19 97 07/10/24 11:30 147/95 H 07/10/24 11:30 147/95 H 07/10/24 11:30 147/95 H 07/10/24 11:30 147/95 H 07/10/24 11:27 61 07/10/24 11:12 55 L 17 96 07/10/24 11:08 143/100 H 07/10/24 11:08 143/100 H 07/10/24 10:52 36.0 C L 61 20 164/82 H 97 Room Air Critical Care Results & Data Vital Signs (Past 12 Hours) Vital Signs Temp Pulse Resp BP Pulse Ox O2 Del Method 07/10/24 15:00 82 15 96 07/10/24 14:51 147/95 H 07/10/24 13:33 Room Air 07/10/24 13:20 66 154/92 H 07/10/24 13:15 165/100 H 07/10/24 13:15 165/100 H 07/10/24 13:10 161/84 H 07/10/24 13:09 74 17 97 Room Air 07/10/24 13:06 72 21 07/10/24 13:05 167/84 H 07/10/24 13:00 162/99 H 07/10/24 12:55 154/84 H 07/10/24 12:51 63 17 97 Room Air 07/10/24 12:50 153/94 H 07/10/24 12:47 0 L 07/10/24 12:45 150/85 H 07/10/24 12:39 76 28 H 96 Room Air 07/10/24 12:36 68 12 97 Room Air 07/10/24 12:35 155/90 H 07/10/24 12:33 74 20 98 Room Air 07/10/24 12:30 172/89 H 07/10/24 12:24 27 H 07/10/24 12:23 0 L 07/10/24 12:21 55 L 17 93 Room Air 07/10/24 12:12 58 L 16 96 07/10/24 12:00 154/78 H 07/10/24 12:00 154/78 H 07/10/24 11:48 63 14 93 07/10/24 11:30 57 L 19 97 07/10/24 11:30 147/95 H 07/10/24 11:30 147/95 H 07/10/24 11:30 147/95 H 07/10/24 11:30 147/95 H 07/10/24 11:27 61 07/10/24 11:12 55 L 17 96 07/10/24 11:08 143/100 H 07/10/24 11:08 143/100 H 07/10/24 10:52 36.0 C L 61 20 164/82 H 97 Room Air Lab & Micro Results (Past 24 Hours) RBC 5.01 M/uL (4.70-6.10) 07/10/24 WBC 6.17 K/ul (4.8-10.8) 07/10/24 Hgb 15.1 g/dl (14.0-18.0) 07/10/24 Hct 44.9 % (42.0-52.0) 07/10/24 MCV 89.6 fL (80.0-100.0) 07/10/24 MCH 30.1 pg (25.0-34.0) 07/10/24 MCHC 33.6 g/dL (32.0-36.0) 07/10/24 RDW Standard Deviation 38.7 fL (36.4-46.3) 07/10/24 RDW Coefficient of Variation 11.9 % (11.5-14.5) 07/10/24 Plt Count 151 K/uL (130-400) 07/10/24 MPV 11.0 fL (9.4-12.4) 07/10/24 Neutrophils (%) (Auto) 70.9 % 07/10/24 Lymphocytes (%) (Auto) 18.8 % 07/10/24 Monocytes # (Auto) 0.50 K/uL (0.11-0.59) 07/10/24 Eosinophils # (Auto) 0.07 K/uL (0.00-0.50) 07/10/24 Immature Granulocyte % (Auto) 0.3 % 07/10/24 Neutrophils # (Auto) 4.37 K/uL (1.40-6.50) 07/10/24 Lymphocytes # (Auto) 1.16 K/uL (1.20-3.40) L 07/10/24 Monocytes # (Auto) 0.50 K/uL (0.11-0.59) 07/10/24 Eosinophils # (Auto) 0.07 K/uL (0.00-0.50) 07/10/24 Basophils # (Auto) 0.05 K/uL (0.00-0.20) 07/10/24 Immature Granulocyte # (Auto) 0.02 K/uL (0.01-0.20) 4 Na 134 mmol/L (136-145) L 07/10/24 K 4.1 mmol/L (3.5-5.1) 07/10/24 Cl 101 mmol/L (98-107) 07/10/24 CO2 28 mmol/L (21-32) 07/10/24 Anion Gap 5 (3-11) 07/10/24 BUN 19 mg/dl (6-23) 07/10/24 Creatinine 0.87 mg/dl (0.6-1.4) 07/10/24 BUN/Creatinine Ratio 21.8 (10-20) H 07/10/24 Glu 103 mg/dl (70-99(Fasting)) H 07/10/24 Ca 9.2 mg/dl (8.6-10.3) 07/10/24 Total Bilirubin 0.6 mg/dl (0.2-1.0) 07/10/24 AST 23 U/L (13-39) 07/10/24 ALT 29 U/L (7-52) 07/10/24 Alkaline Phosphatase 60 U/L (34-104) 07/10/24 TP 6.5 gm/dl (6.0-8.3) 07/10/24 Albumin 4.4 gm/dl (3.4-5.0) 07/10/24 Globulin 2.1 gm/dl (2.5-4.0) L 07/10/24 Albumin/Globulin Ratio 2.1 (0.9-2) H 07/10/24 Mg 1.9 mg/dl (1.7-2.4) 07/10/24 11:11 Calcium Level 9.2 mg/dl (8.6-10.3) 07/10/24 11:11 Diagnostic Findings (Past 24 Hours) Head CTA 07/10/24 11:22 CT angio head wo/w CLINICAL HISTORY: syncope, severe headache TECHNIQUE: Contiguous axial CT images of the head were acquired from the base of the skull to the vertex without intravenous contrast administration. CT angiography of the neck was performed following intravenous administration of iodinated contrast. Coronal and sagittal MIPS were obtained from the axial data set and were submitted for review. Automated dose lowering techniques and/or adjustment according to patient size were utilized for this examination. All measurements were calculated based on NASCET criteria. CT DOSE: 737.05 mGy.cm Comparison: None available at the time of this dictation. FINDINGS: CT head: There is no acute intracranial hemorrhage or evidence of acute territorial infarction. No shift of the midline structures, mass effect, or extra-axial abnormalities are shown. CTA Head: The anterior and posterior cerebral circulations are patent. No hemodynamically significant stenosis, aneurysm, dissection, or arteriovenous malformation is shown. IMPRESSION: 1. No acute intracranial hemorrhage, evidence of acute territorial infarction, or other acute intracranial disease process. 2. No occlusion, hemodynamically significant stenosis, aneurysm, dissection, or arteriovenous malformation in the major intracranial arteries. Assessment of stenosis of the internal carotid arteries is based on NASCET criteria. ACT 112: Negative or not required by law. Electronically signed by: Mickey Hall M.D. 07/10/2024 12:20 PM RT Ventilator Mngmt (Last Documented) Ventilator Ordered Settings Respiratory Rate 15 07/10/24 15:00 Ventilator - PT Measurements Respiratory Rate 15 Coding Level of Care Code 14351 CRITICAL CARE 1ST 30-74M Diagnoses Syncope R55 Bradycardia R00.1
[2024-07-10 15:50] LABS: Thyroid Stimulating Hormone 1.879 uIu/ml (0.300-4.500)
[2024-07-10] MEDS: ATROPINE SULFATE 0.1 MG/ML 10ML SYR IV ONE (16:22)
--- OUTSIDE RECORDS SUMMARY | 2024-07-10 16:30 | External Medical Summary | Summary of Care ---
Author Name Unknown Organization [facility] Address [address] [place] [address] Phone [phone] Care Team Providers Care Trim Setter Helper Name Role Phone Citlali Womack MD Primary Care Provider [phone] Reason for Visit * Reason Comments NEW PATIENT * Evaluate & Treat - Unlimited Visits (Within 30 days (routine)) - Authorized Specialty Diagnoses / Procedures Referred By Fela sibley Referred To Contact Dermatology Diagnoses Multiple nevi Citlali Womack MD [address] [place] [address] Referral ID Status Reason Start Date Expiration Date Visits Requested Visits Authorized [id number] Authorized Specialty Services Required 03/24/2024 [id number] Encounter Details Date Type Department Care Team (Late st Contact Info) Description 06/21/2024 10:15 AM EDT Office Visit Dermatology, [address] [address] Carmen Sharma MD [address] [place] [address] Skin neoplasm* Allergies Active Allergy Reactions Criticality Noted Date Comments Nitroglycerin Er Tachycardia Medium 06/08/2014 documented as of this encounter (statuses as of 06/21/2024) Medications Medication Sig Dispensed Refills Start Date End Date Status meclizine (ANTIVERT) 25 MG TabletIndications:Dizz iness Take 1 Tab by mouth 3 times a day as needed for Dizziness. 30 Tab 1 08/26/2016 Active documented as of this encounter (statuses as of 06/21/2024) Active Problems Problem Noted Date Diagnosed Date Overweight (BMI 25.0-29.9) 07/14/2022 Gastroesophageal reflux disease without esophagi tis 11/08/2019 documented as of this encounter (statuses as of 06/21/2024) Resolved Problems Problem Noted Date Diagnosed Date Resolved Date Injury of biceps brachii muscle 01/26/2023 07/19/2023 Acute pain of left shoulder 01/26/2023 07/19/2023 ETD (Eustachian tube dysfunction), bilateral 2 07/19/2023 Prediabetes 10/10/2018 11/08/2019 Overview: Per Prediabetes protocol #1 Kidney stones 09/29/2018 05/12/2019 Chronic RUQ pain 09/02/2018 05/12/2019 Family history of [place] (myocardial infarction) 8 09/29/2018 Dizziness 01/31/2016 03/04/2016 Tension headache 01/31/2016 03/04/2016 Pain in elbow 05/27/2015 03/04/2016 Fatigue 06/08/2014 01/28/2015 Decreased exercise tolerance 06/08/2014 01/28/2015 Vitamin D deficiency 02/08/2013 018 Morales splints 02/07/2013 01/28/2015 Aortic valve insufficiency, congenital 12/26/2012 03/04/2016 Quadricuspid aortic valve 12/26/2012 Dysfunction of eustachian tube 11/23/2011 01/28/2015 Acute sinusitis 10/19/2011 01/28/2015 ADVANCE DIRECTIVE INFORMATION 03/02/2005 10/02/2016 Overview: Yes, Patient instructed to provide copy of advance directive for provider to review and to be scanned into Electronic Medical Record Family history of other card iovascular diseases 10/27/2002 01/28/2015 Overview: ICD-10 update of inactive term documented as of this encounter (statuses as of 06/21/2024) Immunizations Name Administration Dates Next Due COVID-19 mRNA, LNP-s, No Pre serve, 2-Dose Series ([employer]) 09/11/2021,01/10/2021,12/20/2020 COVID-19, MRNA-LNP, 23-24, P F, 30 MCG/0.3 mL, 12 YRS AND ABOVE, IM ([employer]) 02/09/2024 HEPATITIS B VACCINE, RECOMB, 20 MCG/ML, ADULT (HEPLISAV-B) 03/03/2024 Seasonal Influenza Virus Vac cine, Unspecified Formulation 11/24/2021 Seasonal Influenza, PF, 6 M & above, IM , (FluLaval or Fluzone) 07/19/2023,07/14/2022,06/10/2020,2018 Seasonal Influenza, Quadriva lent, No Preserve, IM 07/29/2018 Seasonal Influenza, Trivalen t, (IIV3), PF, (Fluzone) 06/07/2024(Deferred: Patient Refused) Seasonal Influenza, Trivalen t, (IIV3), with Preserv, (Fluzone) 06/27/2017,07/21/2016,08/09/2014,2012,06/20/2012,06/25/2010,08/08/2008(D eferred: Patient Refused) TDAP (age 10 and older)(Boostrix) 03/03/2024 TDAP, Age 7 and older, IM (Adacel) 04/09/2011 Zoster Vaccine Recombinant (Shingrix) 06/07/2024 ,03/03/2024 documented as of this encounter Social History Tobacco Use Types Packs/Day Years Used Date Smoking Tobacco: Never Smokeless Tobacco: Former Comments:Prior smokeless tob acco use only one year Alcohol Use Standard Drinks/Week Comments Yes 4.2 (1 standard drink = 0.6 oz p ure alcohol) rarely PHQ-2 Answer Date Recorded PHQ Adult Total Score 0 06/06/2022 Hunger Vital Sign Answer Date Recorded Within the past 12 months, y ou worried that your food would run out before you got the money to buy more. Never true 02/24/20 24 Within the past 12 months, t he food you bought just didn't last and you didn't have money to get more. Never true 02/24/2024 Childcare Answer Date Recorded Do you feel overwhelmed with taking care of a child, family member or friend? No 02/24/2024 Does your family need help f inding childcare? (Household - for ages 0-17 years) Not on file 02/24/2024 Clothing Answer Date Recorded Have you been unable to get clothing when it was really needed? No 02/24/2024 Is your family able to get c lothes or diapers when needed? (Household - for ages 0-17 years) Not on file 02/24/2024 Personal Safety Answer Date Recorded Do you feel unsafe or have concerns for your saf ety? No 02/24/2024 Do you have concerns for you r family's safety? (Household - for ages 0-17 years) Not on file 02/24/2024 Utilities Answer Date Recorded Do you have trouble paying y our heating, water, or electric bill? No 02/24/2024 Is your family able to pay t he heat, water, or electric bill? (Household - for ages 0-17 years) Not on file 02/24/2024 Does your family have access to good internet? (Household - for ages 0-17 years) Not on file 02/24/2024 Employment Status Answer Date Recorded Are you unemployed or without regular income? No 02/24/2024 Does the household have a [facility] source of income? (Household - for ages 0-17 years) Not on file 02/24/2024 Social Connections Answer Date Recorded How often do you feel lonely or isolated from th ose around you? Rarely 02/24/2024 Financial Resource Strain Answer Date R ecorded Do you have any trouble payi ng for your medications, or do you think you might in the future? No 02/24/2024 Does your family have troubl e paying for medicine? (Household - for ages 0-17 years) Not on file 02/24/2024 Transportation Needs Answer Date Record ed READ ONLY Do you have troubl e getting a ride to medical visits or work? Never True 02/24/2024 Does your family have a hard time getting a ride to doctors visits? (Household - for ages 0-17 years) Not on file 02/24/2024 Has lack of transportation k ept you from medical appointments, meetings, work, or from getting things needed for daily living? Check all that apply. (Adult - for ages 18 years and over) Not on file 02/24/2024 Do you (or your family) have trouble finding or paying for a ride (transportation)? (Household - for ages 0-17 years) Not on file 02/24/2024 Housing Stability Answer Date Recorded Do you currently live in a s helter or have no steady place to sleep at night? No 02/24/2024 READ ONLY Do you think you a re at risk of becoming homeless? No 02/24/2024 Does your family worry about paying for your home or becoming homeless? (Household - for ages 0-17 years) Not on file 0 02/24/2024 Are you homeless or worried that you might be in the future? (Adult - for ages 18 years and over) Not on file Are you (or your family) luisana eless or worried that you might be in the future? (Household - for ages 0-17 years) Not on file Food Insecurity Answer Date Recorded Do you need food for this week? No 02/24/2024 Are you able to get enough f ood for your family? (Household - for ages 0-17 years) Not on file 02/24/2024 Does your family need food t his week? (Household - for ages 0-17 years) Not on file 02/24/2024 Do you always have enough fo od for your family? (Household - for ages 0-17 years) Not on file 02/24/2024 Sex and Gender Information Value Date Recorded Sex Assigned at Male 07/05/2023 9:55 AM EDT Gender Identity Male 07/05/2023 9:55 AM EDT Sexual Orientation Straight 07/05/2023 9 :55 AM EDT Job Start Date Occupation Industry Not on file Not on file Not on file documented as of this encounter Progress Notes * Carmen Sharma MD - 06/21/2024 10:41 AM EDT SUBJECTIVE: HPI: Kimani Carson is a 53 year old male seen at the request of Citlali Womack MD for evaluation and treatment of lesion on his forehead It has been present for months. It is asymptomatic. He would also like me to check a lesion on his left chest He would like a waist up skin check while he is here today Patient declined a control operator for today's exam DERMATOLOGIC HISTORY: H/o skin cancer: none FAMILY HISTORY: Skin cancer: none REVIEW OF SYSTEMS: SKIN: No other new or changing moles. HEME/LYMPH: No new or enlarging lumps or bumps. Past Medical History: Diagnosis Date Asthma, allergic exercise induced- Family history of [place] (myocardial infarction) 03/10/2018 Fissure, anal Gastroesophageal reflux disease without esophagitis 11/08/2019 Kidney stones 09/29/2018 Overweight (BMI 25.0-29.9) 07/14/2022 Vitamin D deficiency 02/08/2013 Patien t Active Problem List Diagnosis Gastroesophageal reflux disease without esophagitis Overweight (BMI 25.0-29.9) MEDICA TIONS: Current Outpatient Medications Medication Sig Dispense Refill meclizine (ANTIVERT) 25 MG Tablet Take 1 Tab by mouth 3 times a day as needed for Dizziness. 30 Tab1 No current facility-administered medications for this visit. ALLERG Y: Nitroglycerin [nitroglycerin er] OBJECTIVE: GEN: Healthy, alert, no distress, appears oriented, pleasant, and cooperative. SKIN: Detailed exam of hair, face including lids and lips, neck, back, chest, abdomen, right and left upper extremities completed and are normal except: A. Medial forehead - 4 mm light brown macule. B. Left chest - 1 cm brown macule. Declined a full skin check ASSESSMENT/PLAN: A. Favor macular seborrheic keratosis r/o melanocytic B. ?lentigo Biopsy via shave technique of the lesion noted above to establish and confirm diagnosis. The procedure, risks, benefits, alternatives and expected outcomes were discussed with the patient and consentwas obtained. Verbal consent for photography was also obtained. In particular I discussed the risksof pain, bleeding, scarring and recurrence with the patient. Time out called. Patient identified, procedure verified, site identified and verified. Patient and staff present in agreement. Area prepped with alcohol and anesthetized with 0.5% lidocaine with epinephrine at 1:200,000 concentration. Biopsy of lesion performed. 20% AlCl and bandaging applied. Specimen sent to pathology. Patient instructed in routine post-op care. MyG C. Skin exam, screening for skin cancer -Discussed sun protection methods including the proper use of sunscreen and protective clothing. Recommended use of a broad spectrum sunscreen with an SPF of at least 30. Explained that this should be reapplied at least every 2 hours when outdoors. -The ABCDE's of melanoma were discussed and patient instructions on how to identify a melanoma wereprovided -The patient was advised to perform routine skin self-examinations and to call for an appointment if new or concerning lesions develop Follow-up: as needed The patient was encouraged to contact me with any further questions or concerns. Carmen Sharma MD 06/21/2024 10:41 AM REF: CITLAIL WOMACK [address] [address] (office) [phone] (fax) documented in this encounter Plan of Treatment Upcoming Encounters Date Type Department Care Team (Late st Contact Info) Description 07/21/2024 10:40 AM EDT Office Visit Family [facility] [address] [address] Citlali Womack MD [address] [address] Pending Results Name Type Priority Associated Diagnoses Date /Time SURGICAL PATHOLOGY Pathology Routine Skin neoplasm 06/21/2024 10:50 AM EDT Health Maintenance Due Date Last Done Comments HIV Screening 1986 Hepatitis C Screening 1989 Cologuard 2016 Fecal Occult Blood Test 2016 Sigmoidoscopy 2016 Depression Screening 06/06/2023 06/06/2022 Hepatitis B Vaccine (2 of 2 - CpG 2-dose series) 03/31/2024 03/03/2024 COVID-19 Vaccine ( season) 2024 02/09/2024, 09/11/2021, 01/10/2021, Additional history exists Influenza Vaccine (FLU shot) (#1) 2024 07/19/2023, 07/14/2022, 11/24/2021, Additional history exists Diabetes Screening 07/19/2026 07/19/2023, 1 , 06/09/2021, Additional history exists Colonoscopy 01/12/2027 01/12/2017, 01/12/2017 Colorectal Cancer Screening 01/12/2027 Lipid Panel 07/19/2028 07/19/2023, 05/28, 03/17/2018, Additional history exists DTap/Tdap Vaccines (3 - Td or Tdap) 03/03/2034 03/03/2024, 04/09/2011, 09/01/2002 Zoster Vaccines Completed 06/07/2024, 03/03/2024 HPV (Gardasil) Vaccine Aged Out No lo nger eligible based on patient's age to complete this topic MENINGOCOCCAL (MENACTRA/MENVEO) Aged Out No longer eligible based on patient's age to complete this topic Pneumococcal Vaccine: Pediatrics (0 to 5 Years) and At-Risk Patients (6 to 64 Years) Aged Out No longer eligible based on patient's age to complete this topic documented as of this encounter Medical Devices Not on filedocumented as of this encounter Visit Diagnoses Diagnosis 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
--- OUTSIDE RECORDS SUMMARY | 2024-07-10 16:30 | External Medical Summary | Summary of Care ---
Author Name Unknown Organization [facility] Address [address] [place] [place] [address] Phone [phone] Care Team Providers Care Deburring Machine Operator Name Role Phone Uvaldo Sheffield MD Primary Care Provider [phone] Reason for Referral * Evaluate & Treat - Unlimited Visits (Within 10 days (routine)) - Authorized Specialty Diagnoses / Procedures Referred By Fela sibley Referred To Contact Dermatology Diagnoses Benign skin lesion of forehead Uvaldo Sheffield MD [address] [place] [address] Referral ID Status Reason Start Date Expiration Date Visits Requested Visits Authorized [id number] Authorized Specialty Services Required 06/08/[phone] Question Answer Referral Priority Within 10 days (routine) Where should this appointment be scheduled? [facility] Are you referring the patient for Mohs Surgery and have a current positive skin cancer biopsy result? No What is the reason for the patient referral? Rash/Skin Check/Eval of Lesion or Mole Encounter Details Date Type Department Care Team (Late st Contact Info) Description 06/08/[address] [facility] [address] [place] [address] Uvaldo Sheffield MD [address] [place] [address] Allergies Active Allergy Reactions Criticality Noted Date Comments Nitroglycerin Er Tachycardia Medium 06/08/2014 documented as of this encounter (statuses as of 06/16/2024) Medications Medication Sig Dispensed Refills Start Date End Date Status meclizine (ANTIVERT) 25 MG TabletIndications:Dizz iness Take 1 Tab by mouth 3 times a day as needed for Dizziness. 30 Tab 1 08/26/2016 Active documented as of this encounter (statuses as of 06/16/2024) Active Problems Problem Noted Date Diagnosed Date Overweight (BMI 25.0-29.9) 07/14/2022 Gastroesophageal reflux disease without esophagi tis 11/08/2019 documented as of this encounter (statuses as of 06/16/2024) Resolved Problems Problem Noted Date Diagnosed Date Resolved Date Injury of biceps brachii muscle 01/26/2023 07/19/2023 Acute pain of left shoulder 01/26/2023 07/19/2023 ETD (Eustachian tube dysfunction), bilateral 2 07/19/2023 Prediabetes 10/10/2018 11/08/2019 Overview: Per Prediabetes protocol #1 Kidney stones 09/29/2018 05/12/2019 Chronic RUQ pain 09/02/2018 05/12/2019 Family history of [place] (myocardial infarction) 8 09/29/2018 Dizziness 01/31/2016 03/04/2016 [...] as of this encounter (statuses as of 06/16/2024) Immunizations Name Administration Dates Next Due COVID-19 mRNA, LNP-s, No Pre serve, 2-Dose Series ([employer]) 09/11/2021,01/10/2021,12/20/2020 COVID-19, MRNA-LNP, 23-24, P F, 30 MCG/0.3 mL, 12 YRS AND ABOVE, IM (P[employer]ER-Comirnaty) 02/09/2024 HEPATITIS B VACCINE, RECOMB, 20 MCG/ML, [...] No 02/24/2024 Does the household have a [facility] source of income? (Household - for ages [...] 9:55 AM EDT Sexual Orientation Straight 07/05/2023 9: 55 AM EDT Job Start Date Occupation Industry Not on file Not on file Not on file documented as of this encounter Miscellaneous Notes * Telephone Encounter - Uvaldo Sheffield MD - 06/08/2024 4:29 PM EDT Please assist with derm referral documented in this encounter Plan of Treatment Upcoming Encounters Date Type Department Care Team (Late st Contact Info) Description 06/21/2024 10:15 AM EDT Office Visit Dermatology, [address] [place] [address] Carmen Sharma MD [address] [place] [address] 07/21/2024 10:40 AM EDT Office Visit [facility] [address] [place] [address] Uvaldo Sheffield MD [address] [place] [address] Scheduled Referrals Name Type Priority Associated Diagnoses Orde r Schedule DERMATOLOGY REFERRAL OP Referral Within 10 days (routine) Benign skin lesion of forehead Ordered: 06/08/2024 Health Maintenance Due Date Last Done Comments [...] as of this encounter Visit Diagnoses Diagnosis Benign skin lesion of forehead- Primary Unspecified disorder of skin and subcutaneous tissue documented in this encounter Care Teams Deburring Machine Operator Relationship Specialty Start Date End Date Uvaldo Sheffield MD [address] [facility] [place] [address] PCP - General Family Medicine 09/23/18 documented as of this encounter
--- OUTSIDE RECORDS SUMMARY | 2024-07-10 16:31 | External Medical Summary | Summary of Care ---
Author Name Unknown Organization [facility] Address [address] [facility] [place] [address] Phone [phone] Care Team Providers Care Polygraph Technician Name Role Phone Uvaldo Sheffield MD Primary Care Provider [phone] Reason for Visit * Reason Comments Acute Pain below navel Encounter Details Date Type Department Care Team (Late st Contact Info) Description 02/18/2024 12:40 PM EDT Office Visit Family Practice [facility] [address] [facility] [address] Maria Antonia Delvalle CRNP [address] [facility] [place] [address] Periumbilical mass* Allergies Active Allergy Reactions Criticality Noted Date Comments Nitroglycerin Er Tachycardia Medium 06/08/2014 documented as of this encounter (statuses as of 02/18/2024) Medications Medication Sig Dispensed Refills Start Date End Date Status meclizine (ANTIVERT) 25 MG TabletIndications:Di zziness Take 1 Tab by mouth 3 times a day as needed for Dizziness. 30 Tab 1 08/26/2016 Active Additional Information Patient not taking.Reported on 08/09/2023 Fluticasone Propionate 50 MCG/ACT Nasal Suspension (Flonase) Administer 2 Sprays into each nostril in the morning. 1 Each 5 09/16/2022 Active Additional Information Patient not taking.Reported on 08/09/2023 documented as of this encounter (statuses as of 02/18/2024) Active Problems Problem Noted Date Diagnosed Date Overweight (BMI 25.0-29.9) 07/14/2022 Gastroesophageal reflux disease without esophagi tis 11/08/2019 documented as of this encounter (statuses as of 02/18/2024) Resolved Problems Problem Noted Date Diagnosed Date Resolved Date Injury of biceps brachii muscle 01/26/2023 07/19/2023 Acute pain of left shoulder 01/26/2023 07/19/2023 ETD (Eustachian tube dysfunction), bilateral 2 07/19/2023 Prediabetes 10/10/2018 11/08/2019 Overview: Per Prediabetes protocol #1 Kidney stones 09/29/2018 05/12/2019 Chronic RUQ pain 09/02/2018 05/12/2019 Family history of AR (myocardial infarction) 8 09/29/2018 Dizziness 01/31/2016 03/04/2016 [...] as of this encounter (statuses as of 02/18/2024) Immunizations Name Administration Dates Next Due COVID-19 mRNA, LNP-s, No Pre serve, 2-Dose Series ([employer]) 09/11/2021,01/10/2021,12/20/2020 COVID-19, MRNA-LNP, 23-24, P F, 30 MCG/0.3 mL, 12 YRS AND ABOVE, IM (PFIZER-Comirnaty) 02/09/2024 Seasonal Influenza Virus Vac cine, Unspecified Formulation 11/24/2021 Seasonal Influenza, PF, 6 M & above, IM , (FluLaval or Fluzone) 07/19/2023,07/14/2022,06/10/2020,2018 Seasonal Influenza, Quadriva lent, No Preserve, IM 07/29/2018 Seasonal Influenza, Split, I IV3, With Preserve, Inj 06/27/2017,07/21/2016,08/09/2014,2012,06/20/2012,06/25/2010,08/08/2008(D eferred: Patient Refused) TDAP (age 11 and older)(Adacel) 04/09/2011 documented as of this encounter Social History [...] the money to buy more. Never true 07/05/20 23 Within the past 12 months, t he food you bought just didn't last and you didn't have money to get more. Never true 07/05/2023 Sex and Gender Information Value Date Recorded Sex Assigned at Male 07/05/2023 9:55 AM EDT Gender Identity Male 07/05/2023 9:55 AM EDT Sexual Orientation Straight 07/05/2023 9: 55 AM EDT Job Start Date Occupation Industry Not on file Not on file Not on file documented as of this encounter Last Filed Vital Signs Vital Sign Reading Time Taken Comments Blood Pressure 118/68 02/18/2024 12:47 PM EDT Pulse 67 02/18/2024 12:47 PM EDT Temperature 37.1 C (98.7 F) 02/18/2024 12:47 PM E DT Respiratory Rate - - Oxygen Saturation 95% 02/18/2024 12:47 PM EDT Inhaled Oxygen Concentration - - Weight 92.3 kg (203 lb 6.4 oz) 02/18/2024 12:47 PM EDT Height - - Body Mass Index 27.58 08/04/2023 9:58 AM EST documented in this encounter Progress Notes * Maria Antonia Delvalle CRNP - 02/18/2024 1:12 PM EDT Images from the original note were not included. History of Present Illness Kimani Carson is a 53 year old male that presents for Acute (Pain below navel ) HPI Here for bulge under umbilicus -- noticed a few days ago when feeling around int hat area. Belt wasreally digginginto it. No constipation/new diarrhea. No fevers, chills. Current Outpatient Medications Medication Sig Dispense Refill Fluticasone Propionate 50 MCG/ACT Nasal Suspension (Flonase) Administer 2 Sprays into each nostril in the morning. (Patient not taking: Reported on 08/09/2023) 1 Each 5 meclizine (ANTIVERT) 25 MG Tablet Take 1 Tab by mouth 3 times a day as needed for Dizziness. (Patient not taking: Reported on 08/09/2023) 30 Tab 1 No current facility-administered medications for this visit. Physical Exam Vitals: 02/18/24 1247 Temp: 37.1 C (98.7 F) Pulse: 67 SpO2: 95% BP: 118/68 Physical Exam Vitals reviewed. Constitutional: General: He is not in acute distress. Abdominal: Palpations: Abdomen is soft. Comments: +nontender bulge below umbilicus increases with valsalva Neurological: Mental Status: He is alert and oriented to person, place, and time. Psychiatric: Behavior: Behavior normal. Thought Content: Thought content normal. Assessment and Plan Periumbilical mass Suspect hernia Discussed red flags/indications for urgent follow up or ER - US ABDOMEN LIMITED; Future Wrap-Up Follow-up: Return if symptoms worsen or fail to improve. | Check-out note: US abdomen -- please schedule Time: I spent a total of 20-29 minutes (exact time 20 mins) on the date of service in preparation, delivery, and documentation of the care provided to Kimani Carson excluding any time spent in the performance of separately billed services. documented in this encounter Nursing Notes * Xiomara Yuan LPN - 02/18/2024 12:44 PM EDT The patient has been properly identified by confirmation of name and date of . Chief Complaint Patient presents with Acute Pain below navel Pt states this discomfort is at his anterior lower abd, belt line. Denies any abnormal n/v/d/c/heartburn/reflux. Noticed pain with pressure from belt. Hardness under navel. Pt did get covid booster last Wednesday and states in the past his glands get inflamed. Dose not think it is related but wanted to mention. documented in this encounter Plan of Treatment Upcoming Encounters Date Type Department Care Team (Latest Contact Info) Description 02/24/2024 9:15 AM EDT Imaging Radiology [facility] [address] [place] [address] 03/28/2024 6:40 PM EDT Office Visit Family Practice [facility] [address] [place] [address] Uvaldo Sheffield MD [address] [place] [address] 07/04/2024 11:04 AM EDT Hospital Encounter [facility], Outpatient Surgery [address] [place] [address] Miguelina Kruse MD [address] [place] [address] 07/04/2024 11:04 AM EDT - 07/04/2024 12:51 PM EDT Surgery [facility], Outpatient Surgery [address] [place] [address] Miguelina Kruse MD [address] [place] [address] RHINOPLASTY COMPLETE INCLUDING MAJOR SEPTAL REPAIR 07/12/2024 11:00 AM EDT Nurse Only Cosmetic Surgery & Aesthetics [facility] [address] [place] [address] Surgery, Nurse Cosmetic [address] [place] [address] 07/21/2024 10:40 AM EDT Office Visit Family [facility] [address] [place] [address] Uvaldo Sheffield MD [address] [place] [address] Scheduled Orders Name Type Priority Associated Diagnoses Orde r Schedule US ABDOMEN LIMITED Medical Imaging Routine Periumbilical mass Expected: 02/18/2024, Expires: 03/20/2025 Scheduled Procedures Name Priority Associated Diagnoses Date/Ti me RHINOPLASTY COMPLETE INCLUDING MAJOR SEPTAL REPAIR Nasal obstruction Deviated nasal septum 07/04/2024 11:04 AM EDT GRAFT EAR CARTILAGE TO EAR OR NOSE Nasal obstruction Deviated nasal septum 07/04/2024 11:04 AM EDT EXCISION INFERIOR TURBINATE Nasal obstruction Deviated nasal septum 07/04/2024 11:04 AM EDT Health Maintenance Due Date Last Done Comments HIV Screening 1986 Hepatitis C Screening 1989 Hepatitis B (1 of 3 - 19+ 3-dose series) 1990 Cologuard 2016 Fecal Occult Blood Test 2016 Sigmoidoscopy 2016 DTaP,Tdap,and Td Vaccines (2 - Td or Tdap) 04/09/2021 04/09/2011, 09/01/2002 Zoster Vaccines (1 of 2) 2021 Depression Screening 06/06/2023 06/06/2022 Diabetes Screening 07/19/2026 07/19/2023, 1 , 06/09/2021, Additional history exists Colonoscopy 01/12/2027 01/12/2017, 01/12/2017 Colorectal Cancer Screening 01/12/2027 Lipid Panel 07/19/2028 07/19/2023, 05/28, 03/17/2018, Additional history exists Influenza Vaccine (FLU shot) Completed , 07/14/2022, 11/24/2021, Additional history exists COVID-19 Vaccine Completed 02/09/2024, , 01/10/2021, Additional history exists GARDASIL-HPV IMMUNIZATION SERIES Aged Out No longer eligible based on [...] as of this encounter Visit Diagnoses Diagnosis Periumbilical mass- Primary Abdominal or pelvic swelling, mass or lump, periumbilic Nasal obstruction Other diseases of nasal cavity and sinuses Deviated nasal septum documented in this encounter Care Teams Polygraph Technician Relationship Specialty Start Date End Date Uvaldo Sheffield MD [address] [place] [address] PCP - General Family Medicine 09/23/18 documented as of this encounter"
--- OUTSIDE RECORDS SUMMARY | 2024-07-10 16:31 | External Medical Summary | Summary of Care ---
Author Name Unknown Organization [facility] Address [address] [facility] [place] [address] Phone [phone] Care Team Providers Care Wedding Photographer Name Role Phone Uvaldo Sheffield MD Primary Care Provider [phone] Reason for Visit * Reason Onset Date Comments Skin Growth Pt states he not iced a growth on forehead a month ago after a bad sunburn Medication Administration 06/07/2024 Flu an d/or Pneumo Inj Immunizations 06/07/2024 Shingrix Encounter Details Date Type Department Care Team (Late st Contact Info) Description 06/07/2024 11:40 AM EDT Office Visit Family Practice [facility] [address] [facility] [place] [address] Uvaldo Sheffield MD [address] [facility] [place] [address] Benign skin lesion of forehead*; Need for prophylactic vaccination and inoculation against influenza; Need for vaccination for zoster Allergies Active Allergy Reactions Criticality Noted Date Comments Nitroglycerin Er Tachycardia Medium 06/08/2014 documented as of this encounter (statuses as of 06/08/2024) Medications Medication Sig Dispensed Refills Start Date End Date Status meclizine (ANTIVERT) 25 MG TabletIndications:Dizz iness Take 1 Tab by mouth 3 times a day as needed for Dizziness. 30 Tab 1 08/26/2016 Active documented as of this encounter (statuses as of 06/08/2024) Active Problems Problem Noted Date Diagnosed Date Overweight (BMI 25.0-29.9) 07/14/2022 Gastroesophageal reflux disease without esophagi tis 11/08/2019 documented as of this encounter (statuses as of 06/08/2024) Resolved Problems Problem Noted Date Diagnosed Date Resolved Date Injury of biceps brachii muscle 01/26/2023 07/19/2023 Acute pain of left shoulder 01/26/2023 07/19/2023 ETD (Eustachian tube dysfunction), bilateral 2 07/19/2023 Prediabetes 10/10/2018 11/08/2019 Overview: Per Prediabetes protocol #1 Kidney stones 09/29/2018 05/12/2019 Chronic RUQ pain 09/02/2018 05/12/2019 Family history of HI (myocardial infarction) 8 09/29/2018 Dizziness 01/31/2016 03/04/2016 [...] as of this encounter (statuses as of 06/08/2024) Immunizations Name Administration Dates Next Due COVID-19 mRNA, LNP-s, No Pre serve, 2-Dose Series ([employer]) 09/11/2021,01/10/2021,12/20/2020 COVID-19, MRNA-LNP, 23-24, P F, 30 [...] No 02/24/2024 Does the household have a re lar source of income? (Household - for ages [...] Sign Reading Time Taken Comments Blood Pressure 104/72 06/07/2024 11:48 AM EDT Pulse 64 06/07/2024 11:48 AM EDT Temperature 36.4 C (97.6 F) 06/07/2024 11:48 AM E DT Respiratory Rate 18 06/07/2024 11:48 AM EDT Oxygen Saturation - - Inhaled Oxygen Concentration - - Weight 91.2 kg (201 lb) 06/07/2024 11:48 AM EDT Height 182.9 cm (6') 06/07/2024 11:48 AM EDT Body Mass Index 27.26 06/07/2024 11:48 AM EDT documented in this encounter Patient Instructions * Patient Instructions* Shelley Gutierrez LPN - 06/07/2024 11:53 AM EDT ~~PATIENT INSTRUCTIONS FOR SHINGRIX VACCINE~~ Possible side effects of Shingrix vaccine, (shingles), are usually mild and can include: 1. Soreness or redness at injection site 2. Low grade fever 3. Body aches You may use a fever / pain reducing medication as needed for these symptoms. LET YOUR DOCTOR KNOW IMMEDIATELY IF YOU HAVE DIFFICULTY BREATHING OR SWALLOWING, EXPERIENCE ITCHINGOF FEET OR HANDS, HAVE SWELLING OF EYES, FACE OR INSIDE OF NOSE. ~~PATIENT INSTRUCTIONS FOR SHINGRIX VACCINE~~ Possible side effects of Shingrix vaccine, (shingles), are usually mild and can include: 1. Soreness or redness at injection site 2. Low grade fever 3. Body aches You may use a fever / pain reducing medication as needed for these symptoms. LET YOUR DOCTOR KNOW IMMEDIATELY IF YOU HAVE DIFFICULTY BREATHING OR SWALLOWING, EXPERIENCE ITCHINGOF FEET OR HANDS, HAVE SWELLING OF EYES, FACE OR INSIDE OF NOSE. documented in this encounter Progress Notes * Uvaldo Sheffield MD - 06/08/2024 4:31 PM EDT SUBJECTIVE: Kimani Carson is a 53 year old male. Chief Complaint Patient presents with Skin Growth Pt states he noticed a growth on forehead a month ago after a bad sunburn Medication Administration Flu and/or Pneumo Inj Immunizations Shingrix HPI: Noticed a lesion on forehead after he got a sunburn. The burn went away, but the lesion is still there. Not itchy/painful. Patient Active Problem List Diagnosis Gastroesophageal reflux disease without esophagitis Overweight (BMI 25.0-29.9) Current Outpatient Medications Medication Sig Dispense Refill meclizine (ANTIVERT) 25 MG Tablet Take 1 Tab by mouth 3 times a day as needed for Dizziness. 30 Tab1 No current facility-administered medications for this visit. Allergy: Review of patient's allergies indicates: Allergen Reactions Nitroglycerin [Nitroglycerin Er] Tachycardia OBJECTIVE: BP 104/72 | Pulse 64 | Temp 36.4 C (97.6 F) (Tympanic) | Resp 18 | Ht 1.829 m (6') | Wt 91.2 kg(201 lb) | BMI 27.26 kg/m | BSA 2.15 m Skin: slightly raised, brown, coarse skin lesion on forehead ASSESSMENT AND PLAN: (L98.9) Benign skin lesion of forehead (primary encounter diagnosis) Plan: will refer to derm (Z23) Need for prophylactic vaccination and inoculation against influenza Plan: INFLUENZA VAC, TRIVALENT, (IIV3), PF, 0.5 ML (FLUZONE) (Z23) Need for vaccination for zoster Plan: ZOSTER VACCINE RECOMB, 2 DOSE, IM (SHINGRIX), ZOSTER VACCINE RECOMB, 2 DOSE, IM (SHINGRIX) Follow up as needed. No other complaints were offered at this time. Uvaldo Sheffield MD * Shelley Gutierrez LPN - 06/07/2024 11:51 AM EDT PRE - ADMINISTRATION DOCUMENTATION Are you experiencing any cold symptoms or fever? No Have you had Guillain-Ogden Syndrome (an illness that causes paralysis) within the last 6 weeks? No Have you had the flu shot in the past? YES Have you ever had a reaction to the flu shot? No Shelley Gutierrez LPN, 06/07/2024 11:51 AM Immunization Administration Documentation Time Out Procedure Performed: Yes Patient Identified (Ask Name/Date of ): Yes Does the patient have a fever greater than 101 degrees today? No Patient allergic to latex? No VFC Stock: No Immunization(s) verified: Yes, Immunization Name: Flu, VIS Sheet(s) given: Yes Verified Side and Site: Yes Verified Shot(s) with Parent(s)/Patient: Yes Does the patient have active shingles? No If, yes, patient must wait to receive vaccine till after rash is gone. Does the patient have an illness today with a fever more than 101?F? No Has the patient ever had a serious allergic reaction after receiving a vaccination? No Has the patient had a blood test showing they are not immune to Chicken Pox (rare)? No If yes, should get Chicken pox vaccine instead of shingrix. Verified patient has prescription/drug coverage. Patient has been informed that [employer] copays are close to $0. In most cases copays will be around $10. The maximum co-pay patients may get could as high as $200. yes Shingrix Vaccine Information Sheet has been provided. Shelley Gutierrez LPN 06/07/2024 11:53 AM IMMUNIZATION ADMINISTRATION DOCUMENTATION Time Out Procedure Performed: Yes Patient Identified (Ask Name/Date of ): Yes Patient allergic to latex?No VFC Stock? No Immunization(s) verified: Yes, Immunization Name: Shingrix, VIS Sheet(s) given: Yes Verified Side and Site: Yes Verified Shot(s) with Parent(s)/Patient: Yes Shingrix was administered per clinic protocol. Patient received the Shingrix VIS (Vaccine Information Sheet). Shelley Gutierrez LPN, 06/07/2024, 11:53 AM Does the patient have active shingles? No If, yes, patient must wait to receive vaccine till after rash is gone. Does the patient have an illness today with a fever more than 101?F? No Has the patient ever had a serious allergic reaction after receiving a vaccination? No Has the patient had a blood test showing they are not immune to Chicken Pox (rare)? No If yes, should get Chicken pox vaccine instead of shingrix. Verified patient has prescription/drug coverage. Patient has been informed that [employer] copays are close to $0. In most cases copays will be around $10. The maximum co-pay patients may get could as high as $200. yes Shingrix Vaccine Information Sheet has been provided. Shelley Gutierrez LPN 06/07/2024 11:53 AM IMMUNIZATION ADMINISTRATION DOCUMENTATION Time Out Procedure Performed: Yes Patient Identified (Ask Name/Date of ): Yes Patient allergic to latex?No VFC Stock? No Immunization(s) verified: Yes, Immunization Name: Shingrix, VIS Sheet(s) given: Yes Verified Side and Site: Yes Verified Shot(s) with Parent(s)/Patient: Yes Shingrix was administered per clinic protocol. Patient received the Shingrix VIS (Vaccine Information Sheet). Shelley Gutierrez LPN, 06/07/2024, 11:53 AM documented in this encounter Nursing Notes * Shelley Gutierrez LPN - 06/07/2024 11:48 AM EDT The patient has been properly identified by confirmation of name and date of . Chief Complaint Patient presents with Skin Growth Pt states he noticed a growth on forehead a month ago after a bad sunburn documented in this encounter Plan of Treatment Upcoming Encounters Date Type Department Care Team (Late st Contact Info) Description 07/21/2024 10:40 AM EDT Office Visit Family Practice [facility] [address] [place] [address] Uvaldo Sheffield MD [address] [place] [address] 11/30/2024 10:00 AM EST Office Visit Dermatology [facility] [address] [facility] [place] [address] Jeffrey Esteban MD [address] [place] [address] Health Maintenance Due Date Last Done Comments [...] Unspecified disorder of skin and subcutaneous tissue Need for prophylactic vaccination and inoculation against influenza Need for vaccination for zoster Need for prophylactic vaccination and inoculation against other viral diseases documented in this encounter Care Teams Wedding Photographer Relationship Specialty Start Date End Date Uvaldo Sheffield MD [address] [place] [address] PCP - General Family Medicine 09/23/18 documented as of this encounter"
--- OUTSIDE RECORDS SUMMARY | 2024-07-10 16:31 | External Medical Summary | Summary of Care ---
Author Name Unknown Organization [facility] Address [address] [facility] [place] [address] Phone [phone] Care Team Providers Care County Director Name Role Phone Uvaldo Sheffield MD Primary Care Provider [phone] Reason for Visit * Reason Onset Date Comments Immunizations 03/03/2024 Follow Up Pt here for foll ow up on abd discomfort, states he continues with nausea. Encounter Details Date Type Department Care Team (Late st Contact Info) Description 03/03/2024 8:40 AM EDT Office Visit Family Practice [facility] [address] [facility] [place] [id number] Uvaldo Sheffield MD [address] [facility] [place] [id number] Routine general medical examination at a health care facility*; Need for shingles vaccine; Need for hepatitis B vaccination; Need for nmabajljig-srxapmk-ei rtussis (Tdap) vaccine Allergies Active Allergy Reactions Criticality Noted Date Comments Nitroglycerin Er Tachycardia Medium 06/08/2014 documented as of this encounter (statuses as of 03/03/2024) Medications Medication Sig Dispensed Refills Start Date End Date Status meclizine (ANTIVERT) 25 MG TabletIndications :Dizziness Take 1 Tab by mouth 3 times a day as needed for Dizziness. 30 Tab 1 08/26/2016 Active Fluticasone Propionate 50 MCG/ACT Nasal Suspension (Flonase) Administer 2 Sprays into each nostril in the morning. 1 Each 5 09/16/2022 03/03/2024 Discontinued (Discharged) documented as of this encounter (statuses as of 03/03/2024) Active Problems Problem Noted Date Diagnosed Date Overweight (BMI 25.0-29.9) 07/14/2022 Gastroesophageal reflux disease without esophagi tis 11/08/2019 documented as of this encounter (statuses as of 03/03/2024) Resolved Problems Problem Noted Date Diagnosed Date Resolved Date Injury of biceps brachii muscle 01/26/2023 07/19/2023 Acute pain of left shoulder 01/26/2023 07/19/2023 ETD (Eustachian tube dysfunction), bilateral 2 07/19/2023 Prediabetes 10/10/2018 11/08/2019 Overview: Per Prediabetes protocol #1 Kidney stones 09/29/2018 05/12/2019 Chronic RUQ pain 09/02/2018 05/12/2019 Family history of KS (myocardial infarction) 8 09/29/2018 Dizziness 01/31/2016 03/04/2016 [...] as of this encounter (statuses as of 03/03/2024) Immunizations Name Administration Dates Next Due COVID-19 mRNA, LNP-s, No Pre serve, 2-Dose Series ([email or web address]) 09/11/2021,01/10/2021,12/20/2020 COVID-19, MRNA-LNP, 23-24, P F, 30 MCG/0.3 mL, 12 YRS AND ABOVE, IM (PFIZER-Comirnaty) 02/09/2024 Hepatitis B Vaccine, Recombi nant, Adjuvanted, 20 mcg/mL (Heplisav-B) 03/03/2024 Seasonal Influenza Virus Vac cine, Unspecified Formulation 11/24/2021 Seasonal Influenza, PF, 6 M & above, IM , (FluLaval or Fluzone) 07/19/2023,07/14/2022,06/10/2020,2018 Seasonal Influenza, Quadriva lent, No Preserve, IM 07/29/2018 Seasonal Influenza, Split, I IV3, With Preserve, Inj 06/27/2017,07/21/2016,08/09/2014,2012,06/20/2012,06/25/2010,08/08/2008(D eferred: Patient Refused) TDAP (age 10 and older)(Boostrix) 03/03/2024 TDAP, Age 7 and older, IM (Adacel) 04/09/2011 Zoster Vaccine Recombinant (Shingrix) 03/03/2024 documented as of this encounter Social History [...] money to get more. Never true 02/24/2024 Sex and Gender Information Value Date Recorded Sex Assigned at Male 07/05/2023 9:55 AM EDT Gender Identity Male 07/05/2023 9:55 AM EDT Sexual Orientation Straight 07/05/2023 9: 55 AM EDT Job Start Date Occupation Industry Not on file Not on file Not on file documented as of this encounter Last Filed Vital Signs Vital Sign Reading Time Taken Comments Blood Pressure 118/76 03/03/2024 8:36 AM EDT Pulse 59 03/03/2024 8:36 AM EDT Temperature 36.2 C (97.2 F) 03/03/2024 8:36 AM ED T Respiratory Rate 18 03/03/2024 8:36 AM EDT Oxygen Saturation 97% 03/03/2024 8:36 AM EDT Inhaled Oxygen Concentration - - Weight 92.5 kg (204 lb) 03/03/2024 8:36 AM EDT Height 182.9 cm (6') 03/03/2024 8:36 AM EDT Body Mass Index 27.67 03/03/2024 8:36 AM EDT documented in this encounter Patient Instructions * Patient Instructions* Shelley Gutierrez LPN - 03/03/2024 8:34 AM EDT ~~PATIENT INSTRUCTIONS FOR TDAP VACCINE~~ Possible side effects of TDAP vaccine, (tetanus shot), are usually mild and can include: 1. Soreness or redness at injection site 2. Low grade fever 3. Body aches You may use a fever / pain reducing medication as needed for these symptoms. LET YOUR DOCTOR KNOW IMMEDIATELY IF YOU HAVE DIFFICULTY BREATHING OR SWALLOWING, EXPERIENCE ITCHINGOF FEET OR HANDS, HAVE SWELLING OF EYES, FACE OR INSIDE OF NOSE. Vaccination is the best way to protect against hepatitis B. Most people should get 3 doses of hepatitis B vaccine. If you miss a dose or get behind schedule, get the next dose as soon as you can. There is no need to start over. Age for Hepatitis B Vaccine: INFANTS: *Infants whose mother HAS hepatitis B virus: #1 dose- at 2 month visit #2 dose- 1 month after dose #1 #3 dose- 7 months of age (at least 5 months after dose #1) *Infants whose mother does NOT have hepatitis B virus: #1 dose- - 2 months of age #2 dose- 1-4 months of age (at least 1 month after dose #1) #3 dose- 6-18 months of age ( at least 2 months after dose #2) *Other recommended age groups #1 dose- Now #2 dose- 1-2 months after dose #1 #3 dose- 4-6 months after dose #1 WHAT ARE THE RISKS FROM HEPATITIS B VACCINE? Hepatitis B vaccine is one of the safest vaccines. Getting the disease is much more likely to causeserious illness than getting the vaccine. MILD PROBLEMS: - soreness where the shot was given. - mild to moderate fever Acetaminophen or Ibuprofen (not aspirin) may be used to reduce fever and pain. SEVERE PROBLEMS: - serious allergic reaction is very rare. WHAT TO DO IF THERE IS A SERIOUS REACTION: - Call a doctor or get the person to a doctor right away. - Ask your doctor, nurse, or health department to file a Vaccine Adverse Event Report form. To filea report yourself you can call: (toll-free) LET YOUR DOCTOR KNOW IMMEDIATELY IF YOU HAVE DIFFICULTY BREATHING OR SWALLOWING, EXPERIENCE ITCHING OF FEET OR HANDS, HAVE SWELLING OF EYES, FACE OR INSIDE OF NOSE. documented in this encounter Progress Notes * Uvaldo Sheffield MD - 03/03/2024 1:59 PM EDT SUBJECTIVE: Kimani Carson is a 53 year old male. Chief Complaint Patient presents with Immunizations Follow Up Pt here for follow up on abd discomfort, states he continues with nausea. HPI: Routine exam and immunization catch up. He has had some vague lower abdominal discomfort for a couple of weeks with some nausea. No fevers/chills. No changes in bowel or bladder habits. Ultrasound was negative for hernia. He will continue to monitor. Patient Active Problem List Diagnosis Gastroesophageal reflux disease without esophagitis Overweight (BMI 25.0-29.9) Current Outpatient Medications Medication Sig Dispense Refill meclizine (ANTIVERT) 25 MG Tablet Take 1 Tab by mouth 3 times a day as needed for Dizziness. 30 Tab1 No current facility-administered medications for this visit. Allergy: Review of patient's allergies indicates: Allergen Reactions Nitroglycerin [Nitroglycerin Er] Tachycardia OBJECTIVE: BP 118/76 | Pulse 59 | Temp 36.2 C (97.2 F) (Tympanic) | Resp 18 | Ht 1.829 m (6') | Wt 92.5 kg(204 lb) | SpO2 97% | BMI 27.67 kg/m | BSA 2.17 m General: alert, healthy, and no distress Neck: supple, no adenopathy, no bruits, thyroid normal size, non-tender, without nodularity Lungs: chest symmetric with normal AP diameter, no chest deformities noted, no chest wall tenderness, lungs clear to auscultation Heart: regular rate & rhythm, no murmur, and no gallops Abdomen: abdomen soft, non-tender, normal bowel sounds, and no masses or organomegaly Extremities: less than 2 second capillary refill, no joint deformities, effusion, or inflammation Neuro Exam: alert & oriented x 3 with fluent speech, no focal motor/sensory deficits, gait normal, reflexes normal and symmetric Skin: skin color, texture, turgor are normal, no rashes or significant lesions ASSESSMENT AND PLAN: (Z00.00) Routine general medical examination at a health care facility (primary encounter diagnosis) Plan: routine health screening exams up to date (Z23) Need for shingles vaccine Plan: ZOSTER VACCINE RECOMB, 2 DOSE, IM (SHINGRIX) (Z23) Need for hepatitis B vaccination Plan: HEP B VACC ADULT, 2 DOSE (HEPLISAV) IM, HEP B VACC ADULT, 2 DOSE (HEPLISAV) IM, CANCELED: HEP B VACCINE, 20+ YRS (3-DOSE) (Z23) Need for tuspsvbxgn-bvxufyy-hlekuxexo (Tdap) vaccine Plan: TDAP (AGE 10 AND OLDER)(BOOSTRIX), CANCELED: TDAP (AGE 10 AND OLDER)(BOOSTRIX) Follow up as needed. No other complaints were offered at this time. Uvaldo Sheffield MD * Shelley Gutierrez LPN - 03/03/2024 8:48 AM EDT Patient refuses Hepatitis B Vaccine today. Provider made aware. documented in this encounter Nursing Notes * Shelley Gutierrez LPN - 03/03/2024 8:36 AM EDT The patient has been properly identified by confirmation of name and date of . Chief Complaint Patient presents with Immunizations Follow Up Pt here for follow up on abd discomfort, states he continues with nausea. documented in this encounter Plan of Treatment Upcoming Encounters Date Type Department Care Team (Latest Contact Info) Description 07/04/2024 11:04 AM EDT Hospital Encounter [facility] Outpatient Surgery [address] [address] Miguelina Kruse MD [address] [place] [phone] 07/04/2024 11:04 AM EDT - 07/04/2024 12:51 PM EDT Surgery [facility], Outpatient Surgery [address] [address] Miguelina Krues MD [address] [place] [phone] RHINOPLASTY COMPLETE INCLUDING MAJOR SEPTAL REPAIR 07/12/2024 11:00 AM EDT Nurse Only Cosmetic Surgery [facility] Aesthetics [address] [address] Surgery, Nurse Cosmetic [address] [place] [phone] 07/21/2024 10:40 AM EDT Office Visit [facility] [address] [address] Uvaldo Sheffield MD [address] [place] [id number] Scheduled Procedures Name Priority Associated Diagnoses Date/Ti [...] 2016 Depression Screening 06/06/2023 06/06/2022 Hepatitis B (2 of 2 - CpG 2-dose series) 03/31/2024 03/03/2024 Zoster Vaccines (2 of 2) 04/28/2024 03/03/2024 Diabetes Screening 07/19/2026 07/19/2023, 1 , 06/09/2021, Additional history exists Colonoscopy 01/12/2027 01/12/2017, 01/12/2017 Colorectal Cancer Screening 01/12/2027 Lipid Panel 07/19/2028 07/19/2023, 05/28, 03/17/2018, Additional history exists DTaP,Tdap,and Td Vaccines (3 - Td or Tdap) 03/03/2034 03/03/2024, 04/09/2011, 09/01/2002 Influenza Vaccine (FLU shot) Completed , 07/14/2022, [...] as of this encounter Visit Diagnoses Diagnosis Routine general medical examination at a health care facility- Primary Need for shingles vaccine Need for prophylactic vaccination and inoculation against other viral diseases Need for hepatitis B vaccination Need for prophylactic vaccination and inoculation against viral hepatitis Need for deqencsong-kskndnd-ulsfkvogd (Tdap) vaccine Need for prophylactic vaccination with combined wjyckwvkou-gzweuiy-usamcsjhx (DTP) vaccine Nasal obstruction Other diseases of nasal cavity and sinuses Deviated nasal septum documented in this encounter Care Teams County Director Relationship Specialty Start Date End Date Uvaldo Sheffield MD [address] [place] [address] PCP - General Family Medicine 09/23/18 documented as of this encounter"
[2024-07-10] MEDS: ICU Protocol for HYPERglycemia SCH (17:09)
[2024-07-10] MEDS: ICU ELECTROLYTE REPLACEMENT PROTOCOL SCH (18:19)
[2024-07-10] MEDS: ACETAMINOPHEN 325 MG TAB PO PRN (20:56)
[2024-07-11 04:16] LABS: Hemoglobin 15.2 g/dl (14.0-18.0); Mean Corpuscular Hgb Conc 34.5 g/dL (32.0-36.0); Mean Platelet Volume 11.3 fL (9.4-12.4); Platelet Count 152 K/uL (130-400); RDW Coefficient of Variation 11.9 % (11.5-14.5); RDW Standard Deviation 38.5 fL (36.4-46.3); Red Blood Count 5.06 M/uL (4.70-6.10); White Blood Count 8.44 K/ul (4.8-10.8)
[2024-07-11 04:29] LABS: BUN Creatinine Ratio 14.1 (10-20); Calcium 8.8 mg/dl (8.6-10.3); Creatinine Clr Calc Pharmacy 121.2 ml/min; Magnesium 2.1 mg/dl (1.7-2.4); Phosphorus 2.7 mg/dl (2.5-4.9); Potassium 3.9 mmol/L (3.5-5.1)
[2024-07-11] MEDS: POTASSIUM CHLORIDE CRTAB 20 MEQ TABCR PO SCH (05:06)
--- NOTE | 2024-07-11 07:47 | Cardiology Progress Note ---
Date of Service July 11, 2024 Assessment & Plan (1) Bradycardia: (2) Syncope: (3) Headache: (4) Syncope and collapse: Plan 53 yo man presenting s/p syncopal events while lifting weights No trauma Patient drove home - spoke with his brought him to the ED In ED, patient noted to have a prolonged pause (>10 sec) Pacing Pads placed on patient Before atropine was given, patient returned to NSR No Afib on presentation Patient denied any chest pain preceding the episode Noted to have T wave inversion (TWI) infero-apical leads Initial Troponin was WNL No known thyroid disease No Tic bites/ No new rash No fevers or chills or previous bouts of endocarditis No known Congenital Heart Disease Plans: * TWI on presenting EKG - Referred for Cath * S/P Coronary Angiography - no significant epicardial coronary stenosis * ECHO - results reviewed - Normal LVEF * Temp Wire Placement in place * TSH - WNL - 1.89 * Lyme Screen - Negative * k+ goal 4.5-5 * Mag goal >2 * Patient is not on beta blockers/ca++ channel blockers/digoxin or antiarrhythmics * Plans for PPM placement * NPO past [facility] Admission and Anticipated Discharge Date Admission Date: July 10, 2024 Subjective Events Overnight: * None reported Subjective: * No complaints Review of Systems Review of Systems: All systems reviewed & are unremarkable except as noted in HPI & below Physical Exam Physical Exam: Patient in NAD No elevation in JVP S1S2 - Potential aortic ejection sound, 2/6 systolic murmur in suprasternal notch CTA B on anterior exam Pacing Pads on chest No LE edema Warm and well-perfused No rash Results & Data Vital Signs (Past 12 Hours) Vital Signs Pulse Resp BP Pulse Ox 07/11/24 06:41 70 18 94 07/11/24 06:02 70 16 93 07/11/24 06:01 155/94 H 07/11/24 06:01 155/94 H 07/11/24 05:50 70 14 96 07/11/24 05:35 70 19 94 07/11/24 05:02 84 20 07/11/24 05:00 144/98 H 07/11/24 05:00 144/98 H 07/11/24 04:56 70 18 95 07/11/24 04:35 70 16 94 07/11/24 04:20 70 18 95 07/11/24 03:48 70 16 94 07/11/24 03:00 70 18 94 07/11/24 03:00 135/94 07/11/24 02:33 71 16 95 07/11/24 02:00 70 13 93 07/11/24 02:00 131/97 07/11/24 02:00 131/97 07/11/24 02:00 131/97 07/11/24 02:00 131/97 07/11/24 02:00 131/97 07/11/24 01:33 70 14 95 07/11/24 01:00 69 18 97 07/11/24 01:00 128/91 07/11/24 01:00 128/91 07/11/24 00:42 70 19 95 07/11/24 00:12 70 15 95 07/10/24 23:30 70 17 94 07/10/24 23:18 70 07/10/24 23:00 70 18 95 07/10/24 23:00 121/84 07/10/24 22:42 70 16 95 07/10/24 22:24 70 12 94 07/10/24 22:15 140/84 07/10/24 22:15 140/84 07/10/24 22:09 70 17 94 07/10/24 22:03 70 13 93 07/10/24 22:00 137/98 07/10/24 22:00 137/98 07/10/24 21:57 69 17 93 07/10/24 21:46 115/83 07/10/24 21:46 115/83 07/10/24 21:46 115/83 07/10/24 21:45 70 18 95 07/10/24 21:30 70 14 94 07/10/24 21:30 135/84 07/10/24 21:30 135/84 07/10/24 21:30 135/84 07/10/24 21:15 129/98 07/10/24 21:15 69 17 95 07/10/24 21:09 77 18 07/10/24 21:00 137/106 H 07/10/24 20:51 71 27 H 94 07/10/24 20:45 148/90 H 07/10/24 20:45 148/90 H 07/10/24 20:45 148/90 H 07/10/24 20:45 148/90 H 07/10/24 20:45 69 21 93 07/10/24 20:30 143/85 H 07/10/24 20:21 70 15 95 07/10/24 20:15 71 14 94 07/10/24 20:15 134/102 H 07/10/24 20:15 134/102 H 07/10/24 20:11 71 07/10/24 20:03 73 15 96 07/10/24 20:00 131/94 07/10/24 19:57 71 15 95 07/10/24 19:48 72 16 95 Laboratory Results Cardiac Enzymes 07/10/24 07/10/24 Range/Units 11:11 12:30 AST 23 (13-39) U/L Troponin I High Sens 5.3 6.2 (0-20) pg/ml CBC 07/10/24 07/11/24 Range/Units 11:11 03:57 WBC 6.17 8.44 (4.8-10.8) K/ul RBC 5.01 5.06 (4.70-6.10) M/uL Hgb 15.1 15.2 (14.0-18.0) g/dl Hct 44.9 44.0 (42.0-52.0) % Plt Count 151 152 (130-400) K/uL Neut # (Auto) 4.37 (1.40-6.50) K/uL Lymph # (Auto) 1.16 L (1.20-3.40) K/uL [place] # (Auto) 0.50 (0.11-0.59) K/uL Eos # (Auto) 0.07 (0.00-0.50) K/uL Baso # (Auto) 0.05 (0.00-0.20) K/uL Comprehensive Metabolic Panel 07/10/24 07/11/24 Range/Units 11:11 03:57 Sodium 134 L 138 (136-145) mmol/L Potassium 4.1 3.9 (3.5-5.1) mmol/L Chloride 101 106 (98-107) mmol/L Carbon Dioxide 28 27 (21-32) mmol/L BUN 19 12 (6-23) mg/dl Creatinine 0.87 0.85 (0.6-1.4) mg/dl Glucose 103 H 106 H (70-99(Fasting)) mg/dl Calcium 9.2 8.8 (8.6-10.3) mg/dl AST 23 (13-39) U/L ALT 29 (7-52) U/L Alkaline Phosphatase 60 (34-104) U/L Total Protein 6.5 (6.0-8.3) gm/dl Albumin 4.4 (3.4-5.0) gm/dl Intake and Output 07/10/24 07/11/24 07/11/24 22:59 06:59 14:59 Intake Total 1300 / 1650 Output Total 1300 / 2425 725 / 2425 Balance 0 / -775 -725 / -775 Intake: IV 1000 / 1000 Sodium Chloride 0.9% 1,000 ml @ 1000 / 1000 125 mls/hr IV .Q8H [facility] Rx#: [id number] Oral 300 / 650 Output: Urine 1300 / 2425 725 / 2425 Other: Weight 94.4 kg 96.2 kg Weight Measurement Method Built in [facility] Built in [facility] Diagnostic Findings Coronary Angiography: 07-10-2024 Coronary Anatomy Dominant: Right Left Main (% Stenosis): Normal LAD (% Stenosis): Normal D1 (% Stenosis): Normal D2 (% Stenosis): Normal D3 (% Stenosis): Normal Circumflex (% Stenosis): Normal OM1 (% Stenosis): Normal OM2 (% Stenosis): Normal L PL1 (% Stenosis): Normal RCA (% Stenosis): Normal R PDA (% Stenosis): Normal R PL1 (% Stenosis): Normal ECHOcardiogram: 07-10-2024 LVEF 65-70% Mild LVH Mild TR Mildly elevated PASP Medications Administered Current Inpatient Medications Acetaminophen (Acetaminophen 325 Mg Tab) 650 mg PO Q6H PRN PRN Reason: pain/fever Stop: 08/09/24 18:32 Last Admin: 07/10/24 20:56 Dose: 650 mg Enoxaparin Sodium (Enoxaparin Inj 40 Mg/0.4 Ml Syr) 40 mg SQ QAM MALINDA Stop: 08/10/24 08:59 Hydromorphone HCl (Hydromorphone Inj 0.5 Mg/0.5 Ml Syr) 0.5 mg IV Q15M PRN PRN Reason: Pain Stop: 07/24/24 11:24 Last Admin: 07/10/24 11:39 Dose: 0.5 mg Miscellaneous ([facility] Protocol For Hyperglycemia) 1 each N/A ACHS [facility] Stop: 07/12/24 16:29 Last Admin: 07/10/24 20:23 Dose: 1 each Miscellaneous ([facility] Electrolyte Replacement Protocol) 1 each N/A BID@06,18 MALINDA; Protocol Stop: 07/17/24 17:59 Last Admin: 07/11/24 04:51 Dose: 1 each Potassium Chloride (Potassium Chloride Crtab 20 Meq Tabcr) 20 meq PO Q4H MALINDA Stop: 07/11/24 09:01 Last Admin: 07/11/24 05:06 Dose: 20 meq
--- NOTE | 2024-07-11 07:56 | Critical Care Progress Note ---
Date of Service July 11, 2024 Assessment & Plan (1) Syncope: (2) Bradycardia: Plan Impression: 53-year-old male without prior medical history presenting with syncope and headache and found to have a sinus arrest without ventricular escape rhythm which spontaneously terminated. He is now status post temporary pacing wire and hemodynamically stable. Recommendation: 1. Sinus arrest without ventricular escape rhythm and syncopal episode. Unremarkable coronary angiography. Echocardiogram pending. Lyme studies negative. No obvious electrolyte abnormalities to account for current finding. No proteinuria and total protein and albumin negative. Check SPEP as well as COLETTE for infiltrative disorders and follow-up with echocardiogram findings. Defer to cardiology and electrophysiology long-term management strategy 2. ICU electrolyte replacement protocol. 3. Continue bedrest while temporary pacing wire in place 4. Headaches: Resolved 5. Mild hyponatremia: Resolved Will follow in the ICU as long as the temporary pacing wires in place. The above recommendations and plan were discussed with the patient as well as the critical care nurse at bedside and on multidisciplinary rounds. Will keep in ICU as long as temporary pacing wire in place Admission and Anticipated Discharge Date Admission Date: July 10, 2024 Subjective Patient seen and examined. EMR reviewed. Discussed with bedside critical care nurse as well as on multidisciplinary rounds. The patient is awake alert and conversant. He is n.p.o. for potential procedure today. Overnight he had no episodes of syncope or palpitations. He denies any chest pain or chest pressure. He remains intermittently paced. When the pacemaker is paused, he has an intrinsic rhythm of about 65 which appears to be normal sinus with normal intervals. Review of Systems Review of Systems: All systems reviewed & are unremarkable except as noted in Subjective Physical Exam Constitutional: WD/WN, vitals as above Neck: trachea midline, no thyromegaly Temporary pacer site clean dry and intact Respiratory: normal respiratory effort, lungs clear to auscultation Cardiovascular: RRR, no murmur, no edema Gastrointestinal (Abdomen): normal bowel sounds, soft, nontender, no hepatosplenomegaly Musculoskeletal: Extremities: extremities normal to inspection Skin: no rashes, warm and dry Lymphatic: no cervical lymphadenopathy Results & Data Results & Data Vital Signs (Past 12 Hours) Vital Signs Pulse Resp BP Pulse Ox 07/11/24 06:41 70 18 94 07/11/24 06:02 70 16 93 07/11/24 06:01 155/94 H 07/11/24 06:01 155/94 H 07/11/24 05:50 70 14 96 07/11/24 05:35 70 19 94 07/11/24 05:02 84 20 07/11/24 05:00 144/98 H 07/11/24 05:00 144/98 H 07/11/24 04:56 70 18 95 07/11/24 04:35 70 16 94 07/11/24 04:20 70 18 95 07/11/24 03:48 70 16 94 07/11/24 03:00 70 18 94 07/11/24 03:00 135/94 07/11/24 02:33 71 16 95 07/11/24 02:00 70 13 93 07/11/24 02:00 131/97 07/11/24 02:00 131/97 07/11/24 02:00 131/97 07/11/24 02:00 131/97 07/11/24 02:00 131/97 07/11/24 01:33 70 14 95 07/11/24 01:00 69 18 97 07/11/24 01:00 128/91 07/11/24 01:00 128/91 07/11/24 00:42 70 19 95 07/11/24 00:12 70 15 95 07/10/24 23:30 70 17 94 07/10/24 23:18 70 07/10/24 23:00 70 18 95 07/10/24 23:00 121/84 07/10/24 22:42 70 16 95 07/10/24 22:24 70 12 94 07/10/24 22:15 140/84 07/10/24 22:15 140/84 07/10/24 22:09 70 17 94 07/10/24 22:03 70 13 93 07/10/24 22:00 137/98 07/10/24 22:00 137/98 07/10/24 21:57 69 17 93 07/10/24 21:46 115/83 07/10/24 21:46 115/83 07/10/24 21:46 115/83 07/10/24 21:45 70 18 95 07/10/24 21:30 70 14 94 07/10/24 21:30 135/84 07/10/24 21:30 135/84 07/10/24 21:30 135/84 07/10/24 21:15 129/98 07/10/24 21:15 69 17 95 07/10/24 21:09 77 18 07/10/24 21:00 137/106 H 07/10/24 20:51 71 27 H 94 07/10/24 20:45 148/90 H 07/10/24 20:45 148/90 H 07/10/24 20:45 148/90 H 07/10/24 20:45 148/90 H 07/10/24 20:45 69 21 93 07/10/24 20:30 143/85 H 07/10/24 20:21 70 15 95 07/10/24 20:15 71 14 94 07/10/24 20:15 134/102 H 07/10/24 20:15 134/102 H 07/10/24 20:11 71 07/10/24 20:03 73 15 96 07/10/24 20:00 131/94 07/10/24 19:57 71 15 95 Critical Care Results & Data Vital Signs (Past 12 Hours) Vital Signs Pulse Resp BP Pulse Ox 07/11/24 06:41 70 18 94 07/11/24 06:02 70 16 93 07/11/24 06:01 155/94 H 07/11/24 06:01 155/94 H 07/11/24 05:50 70 14 96 07/11/24 05:35 70 19 94 07/11/24 05:02 84 20 07/11/24 05:00 144/98 H 07/11/24 05:00 144/98 H 07/11/24 04:56 70 18 95 07/11/24 04:35 70 16 94 07/11/24 04:20 70 18 95 07/11/24 03:48 70 16 94 07/11/24 03:00 70 18 94 07/11/24 03:00 135/94 07/11/24 02:33 71 16 95 07/11/24 02:00 70 13 93 07/11/24 02:00 131/97 07/11/24 02:00 131/97 07/11/24 02:00 131/97 07/11/24 02:00 131/97 07/11/24 02:00 131/97 07/11/24 01:33 70 14 95 07/11/24 01:00 69 18 97 07/11/24 01:00 128/91 07/11/24 01:00 128/91 07/11/24 00:42 70 19 95 07/11/24 00:12 70 15 95 07/10/24 23:30 70 17 94 07/10/24 23:18 70 07/10/24 23:00 70 18 95 07/10/24 23:00 121/84 07/10/24 22:42 70 16 95 07/10/24 22:24 70 12 94 07/10/24 22:15 140/84 07/10/24 22:15 140/84 07/10/24 22:09 70 17 94 07/10/24 22:03 70 13 93 07/10/24 22:00 137/98 07/10/24 22:00 137/98 07/10/24 21:57 69 17 93 07/10/24 21:46 115/83 07/10/24 21:46 115/83 07/10/24 21:46 115/83 07/10/24 21:45 70 18 95 07/10/24 21:30 70 14 94 07/10/24 21:30 135/84 07/10/24 21:30 135/84 07/10/24 21:30 135/84 07/10/24 21:15 129/98 07/10/24 21:15 69 17 95 07/10/24 21:09 77 18 07/10/24 21:00 137/106 H 07/10/24 20:51 71 27 H 94 07/10/24 20:45 148/90 H 07/10/24 20:45 148/90 H 07/10/24 20:45 148/90 H 07/10/24 20:45 148/90 H 07/10/24 20:45 69 21 93 07/10/24 20:30 143/85 H 07/10/24 20:21 70 15 95 07/10/24 20:15 71 14 94 07/10/24 20:15 134/102 H 07/10/24 20:15 134/102 H 07/10/24 20:11 71 07/10/24 20:03 73 15 96 07/10/24 20:00 131/94 Lab & Micro Results (Past 24 Hours) RBC 5.06 M/uL (4.70-6.10) 07/11/24 WBC 8.44 K/ul (4.8-10.8) 07/11/24 Hgb 15.2 g/dl (14.0-18.0) 07/11/24 Hct 44.0 % (42.0-52.0) 07/11/24 MCV 87.0 fL (80.0-100.0) 07/11/24 MCH 30.0 pg (25.0-34.0) 07/11/24 MCHC 34.5 g/dL (32.0-36.0) 07/11/24 RDW Standard Deviation 38.5 fL (36.4-46.3) 07/11/24 RDW Coefficient of Variation 11.9 % (11.5-14.5) 07/11/24 Plt Count 152 K/uL (130-400) 07/11/24 MPV 11.3 fL (9.4-12.4) 07/11/24 Neutrophils (%) (Auto) 70.9 % 07/10/24 Lymphocytes (%) (Auto) 18.8 % 07/10/24 Monocytes # (Auto) 0.50 K/uL (0.11-0.59) 07/10/24 Eosinophils # (Auto) 0.07 K/uL (0.00-0.50) 07/10/24 Immature Granulocyte % (Auto) 0.3 % 07/10/24 Neutrophils # (Auto) 4.37 K/uL (1.40-6.50) 07/10/24 Lymphocytes # (Auto) 1.16 K/uL (1.20-3.40) L 07/10/24 Monocytes # (Auto) 0.50 K/uL (0.11-0.59) 07/10/24 Eosinophils # (Auto) 0.07 K/uL (0.00-0.50) 07/10/24 Basophils # (Auto) 0.05 K/uL (0.00-0.20) 07/10/24 Immature Granulocyte # (Auto) 0.02 K/uL (0.01-0.20) 4 Na 138 mmol/L (136-145) 07/11/24 K 3.9 mmol/L (3.5-5.1) 07/11/24 Cl 106 mmol/L (98-107) 07/11/24 CO2 27 mmol/L (21-32) 07/11/24 Anion Gap 5 (3-11) 07/11/24 BUN 12 mg/dl (6-23) 07/11/24 Creatinine 0.85 mg/dl (0.6-1.4) 07/11/24 BUN/Creatinine Ratio 14.1 (10-20) 07/11/24 Glu 106 mg/dl (70-99(Fasting)) H 07/11/24 Ca 8.8 mg/dl (8.6-10.3) 07/11/24 Phosphorus Level 2.7 mg/dl (2.5-4.9) 07/11/24 Total Bilirubin 0.6 mg/dl (0.2-1.0) 07/10/24 AST 23 U/L (13-39) 07/10/24 ALT 29 U/L (7-52) 07/10/24 Alkaline Phosphatase 60 U/L (34-104) 07/10/24 TP 6.5 gm/dl (6.0-8.3) 07/10/24 Albumin 4.4 gm/dl (3.4-5.0) 07/10/24 Globulin 2.1 gm/dl (2.5-4.0) L 07/10/24 Albumin/Globulin Ratio 2.1 (0.9-2) H 07/10/24 2 Mg 2.1 mg/dl (1.7-2.4) 07/11/24 03:57 Calcium Level 8.8 mg/dl (8.6-10.3) 07/11/24 03:57 Diagnostic Findings (Past 24 Hours) Head CTA 07/10/24 11:22 CT angio head wo/w CLINICAL HISTORY: syncope, severe headache TECHNIQUE: Contiguous axial CT images of the head were acquired from the base of the skull to the vertex without intravenous contrast administration. CT angiography of the neck was performed following intravenous administration of iodinated contrast. Coronal and sagittal MIPS were obtained from the axial data set and were submitted for review. Automated dose lowering techniques and/or adjustment according to patient size were utilized for this examination. All measurements were calculated based on NASCET criteria. CT DOSE: 737.05 mGy.cm Comparison: None available at the time of this dictation. FINDINGS: CT head: There is no acute intracranial hemorrhage or evidence of acute territorial infarction. No shift of the midline structures, mass effect, or extra-axial abnormalities are shown. CTA Head: The anterior and posterior cerebral circulations are patent. No hemodynamically significant stenosis, aneurysm, dissection, or arteriovenous malformation is shown. IMPRESSION: 1. No acute intracranial hemorrhage, evidence of acute territorial infarction, or other acute intracranial disease process. 2. No occlusion, hemodynamically significant stenosis, aneurysm, dissection, or arteriovenous malformation in the major intracranial arteries. Assessment of stenosis of the internal carotid arteries is based on NASCET criteria. ACT 112: Negative or not required by law. Electronically signed by: Mickey Hall M.D. 07/10/2024 12:20 PM I & O Totals 24 Hours 07/10/24 07/11/24 07/12/24 06:59 06:59 06:59 Intake Total 1650 / 1650 Output Total 2425 / 2425 Balance -775 / -775 Cumulative 07/10/24 10:41 thru 07/11/24 06:20 Intake Total 1650 Output Total 2425 Balance -775 RT Ventilator Mngmt (Last Documented) Ventilator Ordered Settings Respiratory Rate 18 07/11/24 06:41 Ventilator - PT Measurements Respiratory Rate 18 Coding Level of Care Code 60875 SUB INP/OBS CARE 2/35MIN Diagnoses Syncope R55 Bradycardia R00.1
--- NOTE | 2024-07-11 07:57 | XRay Report ---
XR chest 1V portable CLINICAL HISTORY: pacing wire TECHNIQUE: Single frontal radiograph of the chest was obtained. Comparison: None available at the time of this dictation. FINDINGS: A pacing wire appears to project over the right ventricle. The cardiomediastinal silhouette is normal . The lungs are clear. No evidence of pleural effusion or pneumothorax. IMPRESSION: Pacing wire appears to project over the right ventricle. ACT 112: Negative or not required by law. Electronically signed by: Mickey Hall M.D. 07/11/2024 7:56 AM
--- NOTE | 2024-07-11 08:58 | Electrocardiogram Report ---
Test Reason : Blood Pressure : */* mmHG Vent. Rate : 76 BPM Atrial Rate : 76 BPM P-R Int : 146 ms QRS Dur : 90 ms QT Int : 382 ms P-R-T Axes : 28 37 -19 degrees QTcB Int : 429 ms Normal sinus rhythm with sinus arrhythmia Nonspecific T wave abnormality Inferior leads Nonspecific T wave abnormality Lateral leads Abnormal ECG When compared with ECG of 10-Jul-2024 11:07, Nonspecific T wave abnormality now present Lateral leads Confirmed by Uvaldo Jimenez ([id number]) on 07/11/2024 8:57:34 AM Referred By: REFERRED SELF Confirmed By: Uvaldo Jimenez
--- NOTE | 2024-07-11 08:58 | Electrocardiogram Report ---
Test Reason : Blood Pressure : */* mmHG Vent. Rate : 60 BPM Atrial Rate : 60 BPM P-R Int : 142 ms QRS Dur : 92 ms QT Int : 450 ms P-R-T Axes : 66 49 -8 degrees QTcB Int : 450 ms Normal sinus rhythm Nonspecific T wave abnormality Inferior leads Abnormal ECG When compared with ECG of 10-Jul-2024 12:26, Nonspecific T wave abnormality no longer evident in Lateral leads Confirmed by Uvaldo Jimenez ([id number]) on 07/11/2024 8:57:52 AM Referred By: REFERRED SELF Confirmed By: Uvaldo Jimenez
--- NOTE | 2024-07-11 08:59 | Electrocardiogram Report ---
Test Reason : Blood Pressure : */* mmHG Vent. Rate : 71 BPM Atrial Rate : 71 BPM P-R Int : 136 ms QRS Dur : 82 ms QT Int : 396 ms P-R-T Axes : 35 13 -7 degrees QTcB Int : 430 ms Sinus rhythm with frequent electronic ventricular-paced complexes Abnormal ECG When compared with ECG of 10-Jul-2024 12:42, Electronic ventricular pacemaker now present intermittently Confirmed by Uvaldo Jimenez ([id number]) on 07/11/2024 8:59:19 AM Referred By: REFERRED SELF Confirmed By: Uvaldo Jimenez
[2024-07-11] MEDS: ENOXAPARIN INJ 40 MG/0.4 ML SYR SQ SCH (09:02)
--- NOTE | 2024-07-11 11:44 | Hospitalist Progress Note ---
Date of Service July 11, 2024 Assessment & Plan (1) Syncope and collapse: (2) Bradycardia: (3) Headache: Plan This is a 53yo M with PMH of GERD who presented to ED for evaluation of syncope. Was lifting weights earlier today at the [facility] and had a witnessed syncopal event as well as prolonged pause (>10 seconds) while in ED. Syncope and collapse Bradycardia Status post transvenous pacemaker insertion on 07/10 Presented to ED following syncopal event at gym that occurred while lifting weights Patient noted to have a prolonged pause (>10 sec). Returned to NSR prior to any atropine being given No preceding CP or SOB. Initial troponin negative EKG showed sinus bradycardia with TWI in III and avf (new since Sep 2023 EKG in [facility]) Per Dr. Spence's post cardiac cath report: (07/10/24) 1. Underwent successful insertion of a transvenous pacemaker via the right IJ approach 2. Normal epicardial coronary arteries 3. Continue workup for asystole. Consider permanent pacemaker implantation TSH within normal limits Lyme screen negative Echocardiogram shows EF of 65 to 70% with mild concentric LVH. Cardiology on board; possible permanent pacemaker placement. Continue to monitor on telemetry; continue transvenous pacemaker Headache Post-fall, improved since admission Head CTA without acute findings Code status: FULL PCP: Yohannes Dispo: ICU Time spent evaluating patient, direct bedside care, chart review, placing orders, interpretation of diagnostic studies, discussion , patient, and family members, as well as other required patient management activities is 50 minutes Please note the above document was generated using voice recognition software. It may contain grammatical, syntax or spelling errors. Any formal questions or concerns about the content, text or information contained within the body of this dictation should be directly addressed to the provider for clarification Admission and Anticipated Discharge Date Admission Date: July 10, 2024 Subjective Patient seen and examined at bedside. He is lying comfortably on the bed; not in distress Temporary pacemaker in place; patient requiring intermittent pacing; backup rate of 70 bpm Review of Systems Review of Systems: All systems reviewed & are unremarkable except as noted in Subjective Physical Exam Physical Exam: General Appearance: AO X3, not in any distress Neck: normal visual inspection + R IJ wire visualized, dressing c/d/i Respiratory: normal respiratory effort, lungs clear to auscultation, no wheeze, rales, rhonchi. No accessory muscle use Cardiovascular: regular rate, rhythm, no murmur, normal peripheral pulses, no BLE edema. Vessels: no JVD Extremities/Musculoskeletal: no cyanosis or clubbing, extremities motor strength 5/5 Neurologic: PERRL, EOMI, accommodation nl, no face palsy, no dysarthria, CN's II-XI intact bilaterally and moves all extremities Psychiatric: A+Ox3, euthymic affect Skin: no rashes, normal color, warm/dry Results & Data Results & Data Vital Signs (Past 12 Hours) Vital Signs Temp Pulse Resp BP Pulse Ox O2 Del Method 07/11/24 09:56 36.4 C L 07/11/24 09:03 70 20 95 Room Air 07/11/24 09:01 135/85 07/11/24 09:01 135/85 07/11/24 08:42 70 17 94 07/11/24 08:06 71 21 93 07/11/24 07:02 71 16 92 07/11/24 07:00 133/96 07/11/24 07:00 133/96 07/11/24 06:41 70 18 94 07/11/24 06:02 70 16 93 07/11/24 06:01 155/94 H 07/11/24 06:01 155/94 H 07/11/24 05:50 70 14 96 07/11/24 05:35 70 19 94 07/11/24 05:02 84 20 07/11/24 05:00 144/98 H 07/11/24 05:00 144/98 H 07/11/24 04:56 70 18 95 07/11/24 04:35 70 16 94 07/11/24 04:20 70 18 95 07/11/24 03:48 70 16 94 07/11/24 03:00 70 18 94 07/11/24 03:00 135/94 07/11/24 02:33 71 16 95 07/11/24 02:00 70 13 93 07/11/24 02:00 131/97 07/11/24 02:00 131/97 07/11/24 02:00 131/97 07/11/24 02:00 131/97 07/11/24 02:00 131/97 07/11/24 01:33 70 14 95 07/11/24 01:00 69 18 97 07/11/24 01:00 128/91 07/11/24 01:00 128/91 07/11/24 00:42 70 19 95 07/11/24 00:12 70 15 95
[2024-07-12 04:53] LABS: Phosphorus 2.7 mg/dl (2.5-4.9)
[2024-07-12 06:39] LABS: Basophils # (auto) 0.05 K/uL (0.00-0.20); Basophils % (auto) 0.5 %; Eosinophils # (auto) 0.15 K/uL (0.00-0.50); Eosinophils % (auto) 1.6 %; Hematocrit (blood only) 48.2 % (42.0-52.0); Hemoglobin 16.1 g/dl (14.0-18.0); Immature Granulocytes # (auto) 0.03 K/uL (0.01-0.20); Immature Granulocytes % (auto) 0.3 %; Lymphocytes % (auto) 29.1 %; Mean Corpuscular Hemoglobin 29.1 pg (25.0-34.0); Mean Corpuscular Hgb Conc 33.4 g/dL (32.0-36.0); Mean Corpuscular Volume 87.2 fL (80.0-100.0); Mean Platelet Volume 11.2 fL (9.4-12.4); Monocytes # (auto) 0.87 K/uL (0.11-0.59); Monocytes % (auto) 9.4 %; Neutrophils # (auto) 5.47 K/uL (1.40-6.50); Neutrophils % (auto) 59.1 %; Platelet Count 152 K/uL (130-400); RDW Coefficient of Variation 11.9 % (11.5-14.5); RDW Standard Deviation 38.1 fL (36.4-46.3); Red Blood Count 5.53 M/uL (4.70-6.10); White Blood Count 9.27 K/ul (4.8-10.8)
[2024-07-12 07:07] LABS: BUN Creatinine Ratio 12.5 (10-20); Calcium 9.2 mg/dl (8.6-10.3); Creatinine Clr Calc Pharmacy 107.8 ml/min; Potassium 4.1 mmol/L (3.5-5.1)
--- NOTE | 2024-07-12 08:05 | Electrocardiogram Report ---
Test Reason : Blood Pressure : */* mmHG Vent. Rate : 70 BPM Atrial Rate : 72 BPM P-R Int : * ms QRS Dur : 142 ms QT Int : 446 ms P-R-T Axes : * 73 -28 degrees QTcB Int : 481 ms Ventricular-paced rhythm Abnormal ECG When compared with ECG of 11-Jul-2024 05:08, No significant change was found Confirmed by Uvaldo Jimenez ([id number]) on 07/12/2024 8:04:46 AM Referred By: REFERRED SELF Confirmed By: Uvaldo Jimenez
--- NOTE | 2024-07-12 08:53 | Critical Care Progress Note ---
Date of Service July 12, 2024 Assessment & Plan (1) Syncope: (2) Bradycardia: Plan Impression: 53-year-old male without prior medical history presenting with syncope and headache and found to have a sinus arrest without ventricular escape rhythm which spontaneously terminated. He is now status post temporary pacing wire and hemodynamically stable. Recommendation: 1. Sinus arrest without ventricular escape rhythm and syncopal episode. Unremarkable coronary angiography. Echocardiogram done revealed. Lyme studies negative. N.p.o. for PPM today. Once pacemaker is in place and pacing wires removed, the patient will not require ICU level care and can be transferred to the floor or dismissed from the hospital. Critical care services will sign off. 2. ICU electrolyte replacement protocol. 3. Continue bedrest while temporary pacing wire in place 4. Headaches: Resolved 5. Mild hyponatremia: Resolved Patient going to the [facility] later today. Critical care will sign off. Feel free to contact us with questions or concerns Admission and Anticipated Discharge Date Admission Date: July 10, 2024 Subjective Patient seen and examined. EMR reviewed. No issues overnight. The patient remains free of palpitations, syncope, or presyncope. He does have some mild chest discomfort likely associated with CPR. He is n.p.o. for permanent pacemaker today Review of Systems Review of Systems: All systems reviewed & are unremarkable except as noted in Subjective Physical Exam Constitutional: WD/WN, vitals as above Neck: trachea midline, no thyromegaly Respiratory: normal respiratory effort, lungs clear to auscultation Cardiovascular: RRR, no murmur, no edema Gastrointestinal (Abdomen): normal bowel sounds, soft, nontender, no hepatosplenomegaly Musculoskeletal: Extremities: extremities normal to inspection Skin: no rashes, warm and dry Lymphatic: no cervical lymphadenopathy Results & Data Results & Data Vital Signs (Past 12 Hours) Vital Signs Temp Pulse Resp BP Pulse Ox 07/12/24 07:57 70 07/12/24 07:56 36.7 C 07/12/24 07:33 69 12 94 07/12/24 07:03 71 9 L 92 07/12/24 07:00 120/88 07/12/24 07:00 120/88 07/12/24 07:00 120/88 07/12/24 06:36 70 17 91 07/12/24 06:06 70 18 93 07/12/24 06:00 127/87 07/12/24 05:42 70 17 93 07/12/24 05:30 70 16 92 07/12/24 05:03 70 19 93 07/12/24 05:00 133/92 07/12/24 04:51 71 14 93 07/12/24 04:30 70 15 92 07/12/24 04:00 70 18 93 07/12/24 04:00 150/75 H 07/12/24 03:36 70 14 93 07/12/24 03:00 142/75 H 07/12/24 03:00 69 16 95 07/12/24 02:51 64 12 92 07/12/24 02:00 71 20 94 07/12/24 02:00 114/91 07/12/24 01:45 70 18 94 07/12/24 01:12 70 12 93 07/12/24 01:00 145/91 H 07/12/24 00:36 70 13 90 07/12/24 00:30 70 14 92 07/12/24 00:09 70 15 93 07/12/24 00:00 134/94 07/12/24 00:00 134/94 07/11/24 23:48 70 13 95 07/11/24 23:42 70 12 94 07/11/24 23:12 70 07/11/24 23:00 70 19 93 07/11/24 23:00 150/87 H 07/11/24 22:33 70 16 93 07/11/24 21:42 71 17 95 07/11/24 21:00 72 22 95 07/11/24 21:00 137/82 Critical Care Results & Data Vital Signs (Past 12 Hours) Vital Signs Temp Pulse Resp BP Pulse Ox 07/12/24 07:57 70 07/12/24 07:56 36.7 C 07/12/24 07:33 69 12 94 07/12/24 07:03 71 9 L 92 07/12/24 07:00 120/88 07/12/24 07:00 120/88 07/12/24 07:00 120/88 07/12/24 06:36 70 17 91 07/12/24 06:06 70 18 93 07/12/24 06:00 127/87 07/12/24 05:42 70 17 93 07/12/24 05:30 70 16 92 07/12/24 05:03 70 19 93 07/12/24 05:00 133/92 07/12/24 04:51 71 14 93 07/12/24 04:30 70 15 92 07/12/24 04:00 70 18 93 07/12/24 04:00 150/75 H 07/12/24 03:36 70 14 93 07/12/24 03:00 142/75 H 07/12/24 03:00 69 16 95 07/12/24 02:51 64 12 92 07/12/24 02:00 71 20 94 07/12/24 02:00 114/91 07/12/24 01:45 70 18 94 07/12/24 01:12 70 12 93 07/12/24 01:00 145/91 H 07/12/24 00:36 70 13 90 07/12/24 00:30 70 14 92 07/12/24 00:09 70 15 93 07/12/24 00:00 134/94 07/12/24 00:00 134/94 07/11/24 23:48 70 13 95 07/11/24 23:42 70 12 94 07/11/24 23:12 70 07/11/24 23:00 70 19 93 07/11/24 23:00 150/87 H 07/11/24 22:33 70 16 93 07/11/24 21:42 71 17 95 07/11/24 21:00 72 22 95 07/11/24 21:00 137/82 Lab & Micro Results (Past 24 Hours) RBC 5.53 M/uL (4.70-6.10) 07/12/24 WBC 9.27 K/ul (4.8-10.8) 07/12/24 Hgb 16.1 g/dl (14.0-18.0) 07/12/24 Hct 48.2 % (42.0-52.0) 07/12/24 MCV 87.2 fL (80.0-100.0) 07/12/24 MCH 29.1 pg (25.0-34.0) 07/12/24 MCHC 33.4 g/dL (32.0-36.0) 07/12/24 RDW Standard Deviation 38.1 fL (36.4-46.3) 07/12/24 RDW Coefficient of Variation 11.9 % (11.5-14.5) 07/12/24 Plt Count 152 K/uL (130-400) 07/12/24 MPV 11.2 fL (9.4-12.4) 07/12/24 Neutrophils (%) (Auto) 59.1 % 07/12/24 Lymphocytes (%) (Auto) 29.1 % 07/12/24 Monocytes # (Auto) 0.87 K/uL (0.11-0.59) H 07/12/24 Eosinophils # (Auto) 0.15 K/uL (0.00-0.50) 07/12/24 Immature Granulocyte % (Auto) 0.3 % 07/12/24 Neutrophils # (Auto) 5.47 K/uL (1.40-6.50) 07/12/24 Lymphocytes # (Auto) 2.70 K/uL (1.20-3.40) 07/12/24 Monocytes # (Auto) 0.87 K/uL (0.11-0.59) H 07/12/24 Eosinophils # (Auto) 0.15 K/uL (0.00-0.50) 07/12/24 Basophils # (Auto) 0.05 K/uL (0.00-0.20) 07/12/24 Immature Granulocyte # (Auto) 0.03 K/uL (0.01-0.20) 4 Na 141 mmol/L (136-145) 07/12/24 K 4.1 mmol/L (3.5-5.1) 07/12/24 Cl 106 mmol/L (98-107) 07/12/24 CO2 25 mmol/L (21-32) 07/12/24 Anion Gap 10 (3-11) 07/12/24 BUN 11 mg/dl (6-23) 07/12/24 Creatinine 0.88 mg/dl (0.6-1.4) 07/12/24 BUN/Creatinine Ratio 12.5 (10-20) 07/12/24 Glu 110 mg/dl (70-99(Fasting)) H 07/12/24 Ca 9.2 mg/dl (8.6-10.3) 07/12/24 Phosphorus Level 2.7 mg/dl (2.5-4.9) 07/12/24 Calcium Level 9.2 mg/dl (8.6-10.3) 07/12/24 04:09 I & O Totals 24 Hours 07/11/24 07/12/24 07/13/24 06:59 06:59 06:59 Intake Total 1650 / 1650 700 / 700 Output Total 2425 / 2425 1900 / 1900 Balance -775 / -775 -1200 / -1200 Cumulative 07/10/24 10:41 thru 07/12/24 04:23 Intake Total 2350 Output Total 4325 Balance -1974 RT Ventilator Mngmt (Last Documented) Ventilator Ordered Settings Respiratory Rate 12 07/12/24 07:33 Ventilator - PT Measurements Respiratory Rate 12 Coding Level of Care Code 11807 SUB INP/OBS CARE 2/35MIN Diagnoses Syncope R55 Bradycardia R00.1
--- NOTE | 2024-07-12 14:58 | History & Physical Bridge Note ---
Date of Service July 12, 2024 History & Physical Bridge Note I have examined the patient, reviewed the History & Physical and in the interval since the performance of the History & Physical I have noted the following changes of clinical significance: pt admitted with recurrent syncope; one of which he had on telemetry that correlated with a almost 20second sinus arrest; work up was negative for any secondary reversible etiology. He was recommended a pacemaker prior to hospital discharge. I discussed the procedure and potential risks with the patient; he expressed an understanding and consents signed.
--- NOTE | 2024-07-12 14:58 | Pre Anesthesia Assessment ---
Date of Service July 12, 2024 Pre Sedation Assessment Vital Signs Temp Pulse Resp BP Pulse Ox O2 Del Method 07/12/24 07:57 70 07/12/24 07:56 36.7 C 07/12/24 07:33 69 12 94 07/12/24 07:03 71 9 L 92 07/12/24 07:00 120/88 07/12/24 07:00 120/88 07/12/24 07:00 120/88 07/12/24 06:36 70 17 91 07/12/24 06:06 70 18 93 07/12/24 06:00 127/87 07/12/24 05:42 70 17 93 07/12/24 05:30 70 16 92 07/12/24 05:03 70 19 93 07/12/24 05:00 133/92 07/12/24 04:51 71 14 93 07/12/24 04:30 70 15 92 07/12/24 04:00 70 18 93 07/12/24 04:00 150/75 H 07/12/24 03:36 70 14 93 07/12/24 03:00 142/75 H 07/12/24 03:00 69 16 95 07/12/24 02:51 64 12 92 07/12/24 02:00 71 20 94 07/12/24 02:00 114/91 07/12/24 01:45 70 18 94 07/12/24 01:12 70 12 93 07/12/24 01:00 145/91 H 07/12/24 00:36 70 13 90 07/12/24 00:30 70 14 92 07/12/24 00:09 70 15 93 07/12/24 00:00 134/94 07/12/24 00:00 134/94 07/11/24 23:48 70 13 95 07/11/24 23:42 70 12 94 07/11/24 23:12 70 07/11/24 23:00 70 19 93 07/11/24 23:00 150/87 H 07/11/24 22:33 70 16 93 07/11/24 21:42 71 17 95 07/11/24 21:00 72 22 95 07/11/24 21:00 137/82 07/11/24 20:36 71 23 96 07/11/24 20:30 70 10/15/24 20:20 36.6 C 07/11/24 20:00 118/94 07/11/24 20:00 70 17 96 07/11/24 19:45 70 20 95 07/11/24 19:09 71 23 95 07/11/24 19:00 121/92 07/11/24 17:03 91 H 24 93 Room Air 07/11/24 17:00 167/88 H 07/11/24 17:00 36.7 C 07/11/24 16:57 89 26 H 94 07/11/24 16:03 71 21 96 07/11/24 16:00 135/108 H 07/11/24 16:00 135/108 H 07/11/24 16:00 70 07/11/24 15:51 70 17 95 07/11/24 15:06 71 23 95 07/11/24 15:00 136/109 H Cardiovascular RRR, no murmur, no edema Respiratory normal respiratory effort, lungs clear to auscultation Pre-Sedation Airway Assessment Smoking Status: Never smoker Hx Sleep Apnea: No Hx Difficult Intubation: No Short, Thick Neck: No Thyromental Distance: < 3.5 Finger Breadths Oral Cavity: + WNL Mallampati Class: III ASA: ASA3 NPO Status Date of Last Intake of Fluids: 07/11/24 Date of Last Intake of Solid Food: 07/11/24 Procedure Planning Contraindications for Sedation: none Current Medications Reviewed: Yes Notes The planned sedation has been discussed with the patient. Informed Consent was obtained. I have identified the patient, determined the appropriateness of sedation and have assessed the patient immediately prior to the procedure. All medicine(s) and interventions are by my order.
--- NOTE | 2024-07-12 16:16 | Cardiology Progress Note ---
Date of Service July 12, 2024 Assessment & Plan (1) Sinus node dysfunction: (2) Bradycardia: (3) Syncope: Plan 53 yo man presenting s/p syncopal events while lifting weights No trauma Patient drove home - spoke with his brought him to the ED In ED, patient noted to have a prolonged pause (>10 sec) Pacing Pads placed on patient Before atropine was given, patient returned to NSR No Afib on presentation Patient denied any chest pain preceding the episode Noted to have T wave inversion (TWI) infero-apical leads Initial Troponin was WNL No known thyroid disease No Tic bites/ No new rash No fevers or chills or previous bouts of endocarditis No known Congenital Heart Disease Plans: * S/P Coronary Angiography - no significant epicardial coronary stenosis * ECHO - results reviewed - Normal LVEF * Temp Wire Placement in place * TSH - WNL - 1.89 * Lyme Screen - Negative * Patient is not on beta blockers/ca++ channel blockers/digoxin or antiarrhythmics * Plans for PPM today Admission and Anticipated Discharge Date Admission Date: July 10, 2024 Subjective 53-year-old male seen examined at the bedside. Telemetry reveals sinus rhythm and intermittent ventricular pacing. Denies recurrent lightheadedness or dizziness. Reports syncopal episode while exercising at the gym as well as at home prior to admission. Occasional lightheadedness in the weeks and months preceding hospitalization. Denies family history of pacemaker or conduction disease. Review of Systems Review of Systems: All systems reviewed & are unremarkable except as noted in Subjective Physical Exam Constitutional: well nourished; no acute distress Respiratory: normal respiratory effort; no respiratory distress and no labored breathing Auscultation: no crackles, no rales, no rhonchi and no wheezes Cardiovascular: Rate/Rhythm: regular rate and regular rhythm Heart Sounds: normal S1 and normal S2; no murmur Vessels: no JVD and no carotid bruit Extremities: no edema Gastrointestinal (Abdomen): Inspection/Auscultation: abdomen normal to inspection and normal bowel sounds; abdomen not distended Percussion/Palpation: abdomen soft; abdomen nontender, no guarding and abdomen not rigid Neurologic: CN's II-XI intact bilaterally and moves all extremities; no focal motor deficits Results & Data Vital Signs (Past 12 Hours) Vital Signs Temp Pulse Resp BP Pulse Ox 07/12/24 15:15 36.7 C 10/16/24 07:57 70 07/12/24 07:56 36.7 C 07/12/24 07:33 69 12 94 07/12/24 07:03 71 9 L 92 07/12/24 07:00 120/88 07/12/24 07:00 120/88 07/12/24 07:00 120/88 07/12/24 06:36 70 17 91 07/12/24 06:06 70 18 93 07/12/24 06:00 127/87 07/12/24 05:42 70 17 93 07/12/24 05:30 70 16 92 07/12/24 05:03 70 19 93 07/12/24 05:00 133/92 07/12/24 04:51 71 14 93 07/12/24 04:30 70 15 92 Laboratory Results CBC 07/12/24 Range/Units 04:12 WBC 9.27 (4.8-10.8) K/ul RBC 5.53 (4.70-6.10) M/uL Hgb 16.1 (14.0-18.0) g/dl Hct 48.2 (42.0-52.0) % Plt Count 152 (130-400) K/uL Neut # (Auto) 5.47 (1.40-6.50) K/uL Lymph # (Auto) 2.70 (1.20-3.40) K/uL [place] # (Auto) 0.87 H (0.11-0.59) K/uL Eos # (Auto) 0.15 (0.00-0.50) K/uL Baso # (Auto) 0.05 (0.00-0.20) K/uL Comprehensive Metabolic Panel 07/12/24 Range/Units 04:09 Sodium 141 (136-145) mmol/L Potassium 4.1 (3.5-5.1) mmol/L Chloride 106 (98-107) mmol/L Carbon Dioxide 25 (21-32) mmol/L BUN 11 (6-23) mg/dl Creatinine 0.88 (0.6-1.4) mg/dl Glucose 110 H (70-99(Fasting)) mg/dl Calcium 9.2 (8.6-10.3) mg/dl Intake and Output 07/12/24 07/12/24 07/12/24 06:59 14:59 22:59 Output Total 700 / 1900 600 / 600 Balance -700 / -1200 -600 / -600 Output: Urine 700 / 1900 600 / 600 Other: Weight 92.7 kg (3) Syncope Syncope type: Osorio-Araujo syncope Qualified Code(s): I45.9 - Conduction disorder, unspecified
--- NOTE | 2024-07-12 16:21 | Post Anesthesia Assessment ---
Date of Service July 12, 2024 Post Sedation Assessment Vital Signs Temp Pulse Resp BP Pulse Ox O2 Del Method 07/12/24 15:15 36.7 C 07/12/24 07:57 70 07/12/24 07:56 36.7 C 07/12/24 07:33 69 12 94 07/12/24 07:03 71 9 L 92 07/12/24 07:00 120/88 07/12/24 07:00 120/88 07/12/24 07:00 120/88 07/12/24 06:36 70 17 91 07/12/24 06:06 70 18 93 07/12/24 06:00 127/87 07/12/24 05:42 70 17 93 07/12/24 05:30 70 16 92 07/12/24 05:03 70 19 93 07/12/24 05:00 133/92 07/12/24 04:51 71 14 93 07/12/24 04:30 70 15 92 07/12/24 04:00 70 18 93 07/12/24 04:00 150/75 H 07/12/24 03:36 70 14 93 07/12/24 03:00 142/75 H 07/12/24 03:00 69 16 95 07/12/24 02:51 64 12 92 07/12/24 02:00 71 20 94 07/12/24 02:00 114/91 07/12/24 01:45 70 18 94 07/12/24 01:12 70 12 93 07/12/24 01:00 145/91 H 07/12/24 00:36 70 13 90 07/12/24 00:30 70 14 92 07/12/24 00:09 70 15 93 07/12/24 00:00 134/94 07/12/24 00:00 134/94 07/11/24 23:48 70 13 95 07/11/24 23:42 70 12 94 07/11/24 23:12 70 07/11/24 23:00 70 19 93 07/11/24 23:00 150/87 H 07/11/24 22:33 70 16 93 07/11/24 21:42 71 17 95 07/11/24 21:00 72 22 95 07/11/24 21:00 137/82 07/11/24 20:36 71 23 96 07/11/24 20:30 70 07/11/24 20:20 36.6 C 07/11/24 20:00 118/94 07/11/24 20:00 70 17 96 07/11/24 19:45 70 20 95 07/11/24 19:09 71 23 95 07/11/24 19:00 121/92 07/11/24 17:03 91 H 24 93 Room Air 07/11/24 17:00 167/88 H 07/11/24 17:00 36.7 C 07/11/24 16:57 89 26 H 94 Recovery Score Activity: Moves 4 extremities Respiration: Deep Breath/Cough Circulation: +/-20% PreAnes Value Consciousness: Fully Awake Oxygen Saturation: > 92% On Room Air Discharge Sedation Level of Care: Fast Track Phase II Post Sedation Plan On clinical assessment, the patient appears to have tolerated the sedation without complications. Patient is recovering as anticipated. Patient will continue to be monitored by nursing and may be discharged when sedation discharge criteria are met per below protocol. Upon Completions of procedure up to 15 minutes continue every 5 minute vital signs and the P.A.R. score; then discharge to a Phase I or Fast Track to Phase II per the following guidelines: * Discharge Patient to appropriate Phase II area if PAR is 8 or greater or return to pre- procedure baseline. The post - procedure orders will be as directed. * If PAR score is less than 8 or not return to pre-procedure baseline then patient will follow Phase I monitoring till PAR is reached for Phase II. The Phase I may be done in procedure room or may call to secure a Phase I area. * If naloxone or flumazenil are used for reversal, hold in Phase I for continued monitoring from when last reversal dose was given for a minimum of 60 minutes or longer pending the nurse and/or physician discretion of patient condition before discharge to Phase II. Please call the Sedation Physician to re-evaluate and complete post-note for discharge to Phase II area. Do NOT discharge from procedure sedation or Phase 1 until post- sedation evaluation note is complete by procedure /sedation MD Sedation Discharge Instructions to be given to the patient at discharge to home.
[2024-07-12] MEDS: BUPIVACAINE 0.25% PF 30 ML VIAL ONE (16:47)
[2024-07-12] MEDS: LIDOCAINE 1% LOCAL 20 ML VIAL ONE (16:47)
[2024-07-12] MEDS: VANCOMYCIN HCL 1000MG/20ML VIAL ONE (16:47)
[2024-07-12] MEDS: fentaNYL citrate PF 100 MCG/2 ML VIAL ONE (16:47)
[2024-07-12] MEDS: WATER, STERILE FOR INJ 10 ML VIAL ONE (16:47)
[2024-07-12] MEDS: ceFAZolin 330 MG/ML 1 GM VIAL ONE (16:48)
[2024-07-12] MEDS: MIDAZOLAM HCL 5 MG/ML 1 ML VIAL ONE (16:48)
--- NOTE | 2024-07-12 18:04 | Hospitalist Progress Note ---
Date of Service July 12, 2024 delayed entry date of service noted above Assessment & Plan (1) Syncope and collapse: (2) Bradycardia: (3) Headache: Plan This is a 53yo M with PMH of GERD who presented to ED for evaluation of syncope. Was lifting weights earlier today at the [facility] and had a witnessed syncopal event as well as prolonged pause (>10 seconds) while in ED. Syncope and collapse Bradycardia, Sinus Node Dysfunction, Status post transvenous pacemaker insertion on 07/10 Presented to ED following syncopal event at gym that occurred while lifting weights Patient noted to have a prolonged pause (>10 sec). Returned to NSR prior to any atropine being given No preceding CP or SOB. Initial troponin negative EKG showed sinus bradycardia with TWI in III and avf (new since Sep 2023 EKG in [facility]) Per Dr. Spence's post cardiac cath report: (07/10/24) 1. Underwent successful insertion of a transvenous pacemaker via the right IJ approach 2. Normal epicardial coronary arteries 3. Continue workup for asystole. Consider permanent pacemaker implantation TSH within normal limits Lyme screen negative Echocardiogram shows EF of 65 to 70% with mild concentric LVH. s/p permanent pacemaker placed 07/12/24 Headache Post-fall, improved since admission Head CTA without acute findings Code status: FULL PCP: Yohannes Admission and Anticipated Discharge Date Admission Date: July 10, 2024 Subjective ff up for syncope, etc seen resting in bed, comfortable in good spirits feels fine overall mild soreness over pacemaker site no chest pain, dyspnea, palpitations, dizziness no other new symptoms Review of Systems Review of Systems: all noted and negative except for above Physical Exam Physical Exam: General- oriented x 3, not in distress, speaks in sentences with no effort or accessory muscle use Eyes- anicteric Neck- no JVD Lungs- clear breath sounds bilaterally, no rales/wheezes Heart- normal rate, regular rhythm; no murmurs left chest wall pacemaker site: no hematoma no bleeding Abdomen- normal bowel sounds, nondistended, soft, nontender Extremities- no pretibial edema, no calf tenderness Neuro- alert, oriented x 3; no gross focal neurologic deficits Skin- warm & dry Results & Data Results & Data Vital Signs (Past 12 Hours) Vital Signs Temp Pulse Pulse Resp BP BP Pulse Ox 07/12/24 17:45 36.6 C 75 20 131/83 93 10/16/24 17:15 36.5 C 74 18 132/91 92 07/12/24 17:02 36.6 C 68 15 132/99 93 07/12/24 16:56 73 07/12/24 16:45 36.6 C 77 22 132/99 94 07/12/24 16:30 36.6 C 64 23 134/97 92 07/12/24 16:30 75 13 122/79 93 07/12/24 16:30 72 13 93 07/12/24 15:15 36.7 C 07/12/24 07:57 70 07/12/24 07:56 36.7 C 07/12/24 07:33 69 12 94 07/12/24 07:03 71 9 L 92 07/12/24 07:00 120/88 07/12/24 07:00 120/88 07/12/24 07:00 120/88 07/12/24 06:36 70 17 91 07/12/24 06:06 70 18 93 O2 Del Method 07/12/24 17:45 Room Air 07/12/24 17:15 Room Air 07/12/24 17:02 Room Air 07/12/24 16:56 07/12/24 16:45 Room Air 07/12/24 16:30 Room Air 07/12/24 16:30 Room Air 07/12/24 16:30 Room Air 07/12/24 15:15 07/12/24 07:57 07/12/24 07:56 07/12/24 07:33 07/12/24 07:03 07/12/24 07:00 07/12/24 07:00 07/12/24 07:00 07/12/24 06:36 07/12/24 06:06 all noted and reviewed including below
--- NOTE | 2024-07-12 18:36 | XRay Report ---
XR chest 1V portable HISTORY: 53 years-old Male s/p ppm ensure no PTX status post placement of a dual lead left subclavia n pacer COMPARISON: 07/11/2024 TECHNIQUE: AP view of the chest FINDINGS: Cardiomegaly. Status post placement of a dual lead left subclavian pacer. No postprocedural pneumotho rax identified. Lungs are clear. No pleural effusion. Bones appear intact. IMPRESSION: No postprocedural pneumothorax. ACT 112: Negative or not required by law. The above report was generated using voice recognition software. It may contain grammatical, syntax o r spelling errors. Electronically signed by: Manuel Dotson M.D. 07/12/2024 6:34 PM
[2024-07-13 04:56] LABS: Basophils # (auto) 0.04 K/uL (0.00-0.20); Basophils % (auto) 0.5 %; Eosinophils # (auto) 0.11 K/uL (0.00-0.50); Eosinophils % (auto) 1.3 %; Hematocrit (blood only) 44.8 % (42.0-52.0); Hemoglobin 15.5 g/dl (14.0-18.0); Immature Granulocytes # (auto) 0.03 K/uL (0.01-0.20); Immature Granulocytes % (auto) 0.4 %; Lymphocytes # (auto) 1.66 K/uL (1.20-3.40); Lymphocytes % (auto) 20.1 %; Mean Corpuscular Hgb Conc 34.6 g/dL (32.0-36.0); Mean Corpuscular Volume 86.8 fL (80.0-100.0); Mean Platelet Volume 11.4 fL (9.4-12.4); Monocytes # (auto) 0.74 K/uL (0.11-0.59); Neutrophils # (auto) 5.67 K/uL (1.40-6.50); Neutrophils % (auto) 68.7 %; Platelet Count 148 K/uL (130-400); RDW Coefficient of Variation 11.7 % (11.5-14.5); RDW Standard Deviation 37.5 fL (36.4-46.3); Red Blood Count 5.16 M/uL (4.70-6.10); White Blood Count 8.25 K/ul (4.8-10.8)
[2024-07-13 05:07] LABS: BUN Creatinine Ratio 18.8 (10-20); Calcium 8.9 mg/dl (8.6-10.3); Creatinine Clr Calc Pharmacy 111.6 ml/min; Magnesium 1.9 mg/dl (1.7-2.4); Phosphorus 3.6 mg/dl (2.5-4.9); Potassium 3.7 mmol/L (3.5-5.1)
[2024-07-13] MEDS: POTASSIUM CHLORIDE CRTAB 20 MEQ TABCR PO STA (05:57)
[2024-07-13] MEDS: MAGNESIUM SULFATE / D5W 1 GM/100 ML BAG IV SCH (05:57)
[2024-07-13 08:21] VITALS: RESP 16; TEMP 98.2; O2SAT 95
--- NOTE | 2024-07-13 08:37 | Electrocardiogram Report ---
Test Reason : Blood Pressure : */* mmHG Vent. Rate : 66 BPM Atrial Rate : 66 BPM P-R Int : 142 ms QRS Dur : 122 ms QT Int : 414 ms P-R-T Axes : 38 14 7 degrees QTcB Int : 434 ms Normal sinus rhythm Right bundle branch block T wave abnormality, consider lateral ischemia Abnormal ECG When compared with ECG of 12-Jul-2024 04:17, Sinus rhythm has replaced Electronic ventricular pacemaker Confirmed by Uvaldo Jimenez ([id number]) on 07/13/2024 8:37:14 AM Referred By: REFERRED SELF Confirmed By: Uvaldo Jimenez
[2024-07-13 08:58] LABS: Estimated Average Glucose 114 mg/dl; Hemoglobin A1C 5.6 % (4.5-5.6)
[2024-07-13 10:56] VITALS: BP 136/86; PULSE 66
--- NOTE | 2024-07-13 12:17 | Cardiology Progress Note ---
Date of Service July 13, 2024 Assessment & Plan (1) Sinus node dysfunction: (2) Pacemaker: (3) Syncope: Plan 53 yo man presenting s/p syncopal events while lifting weights No trauma In ED, patient noted to have a prolonged pause (>10 sec) Temporary transvenous pacemaker placed without complication. Permanent pacemaker placed 07/12/2024. Coronary angiography without significant stenosis. Plans: * Outpatient wound check in 1 week. * Post pacemaker activity restrictions reviewed. * Stable for discharge from a cardiac perspective. Ramsey Car DO, [facility] Admission and Anticipated Discharge Date Admission Date: July 10, 2024 Subjective 53-year-old male seen examined at the bedside. Dual-chamber pacemaker implanted 07/12/2024 without complication. Notes mild soreness near surgical site. Denies exertional chest pain or shortness of breath. Telemetry reveals sinus rhythm with occasional pacing. Review of Systems Review of Systems: All systems reviewed & are unremarkable except as noted in Subjective Physical Exam Constitutional: well nourished; no acute distress Respiratory: normal respiratory effort; no respiratory distress and no labored breathing Auscultation: no crackles, no rales, no rhonchi and no wheezes Cardiovascular: Rate/Rhythm: regular rate and regular rhythm Heart Sounds: normal S1 and normal S2; no murmur Vessels: no JVD and no carotid bruit Extremities: no edema Gastrointestinal (Abdomen): Inspection/Auscultation: abdomen normal to inspection and normal bowel sounds; abdomen not distended Pe rcussion/Palpation: abdomen soft; abdomen nontender, no guarding and abdomen not rigid Neurologic: CN's II-XI intact bilaterally and moves all extremities; no focal motor deficits Results & Data Vital Signs (Past 12 Hours) Vital Signs Temp Pulse Pulse Resp BP BP Pulse Ox 07/13/24 10:55 36.8 C 66 16 136/86 95 07/13/24 08:05 36.8 C 68 16 137/95 95 07/13/24 06:02 121/96 07/13/24 05:54 68 2 L 94 07/13/24 05:03 60 0 L 92 07/13/24 05:00 158/101 H 07/13/24 04:54 60 0 L 91 07/13/24 04:03 60 8 L 93 07/13/24 04:01 166/119 H 07/13/24 03:55 36.6 C 07/13/24 03:54 60 13 93 07/13/24 03:09 61 19 93 07/13/24 03:00 133/86 07/13/24 02:57 62 22 93 07/13/24 02:03 60 4 L 94 07/13/24 02:01 161/94 H 07/13/24 01:57 60 2 L 92 07/13/24 01:01 162/91 H 07/13/24 01:00 60 0 L 92 O2 Del Method 07/13/24 10:55 Room Air 07/13/24 08:05 Room Air 07/13/24 06:02 07/13/24 05:54 07/13/24 05:03 07/13/24 05:00 07/13/24 04:54 07/13/24 04:03 07/13/24 04:01 07/13/24 03:55 07/13/24 03:54 07/13/24 03:09 07/13/24 03:00 07/13/24 02:57 07/13/24 02:03 07/13/24 02:01 07/13/24 01:57 07/13/24 01:01 07/13/24 01:00 Laboratory Results CBC 07/13/24 Range/Units 04:11 WBC 8.25 (4.8-10.8) K/ul RBC 5.16 (4.70-6.10) M/uL Hgb 15.5 (14.0-18.0) g/dl Hct 44.8 (42.0-52.0) % Plt Count 148 (130-400) K/uL Neut # (Auto) 5.67 (1.40-6.50) K/uL Lymph # (Auto) 1.66 (1.20-3.40) K/uL [place] # (Auto) 0.74 H (0.11-0.59) K/uL Eos # (Auto) 0.11 (0.00-0.50) K/uL Baso # (Auto) 0.04 (0.00-0.20) K/uL Comprehensive Metabolic Panel 07/13/24 Range/Units 04:11 Sodium 136 (136-145) mmol/L Potassium 3.7 (3.5-5.1) mmol/L Chloride 104 (98-107) mmol/L Carbon Dioxide 25 (21-32) mmol/L BUN 16 (6-23) mg/dl Creatinine 0.85 (0.6-1.4) mg/dl Glucose 148 H (70-99(Fasting)) mg/dl Calcium 8.9 (8.6-10.3) mg/dl Intake and Output 07/12/24 07/13/24 07/13/24 22:59 06:59 14:59 Intake Total 300 / 800 500 / 800 200 / 200 Output Total 350 / 950 Balance 300 / -150 150 / -150 200 / 200 Intake: IV 200 / 200 Magnesium Sulfate / D5w 1 gm In 200 / 200 100 ml @ 50 mls/hr IV Q2H MALINDA Rx#:[id number] Oral 300 / 800 500 / 800 Output: Urine 350 / 950 Other: # Unmeasured Voids 2 (3) Syncope Syncope type: Osorio-Araujo syncope Qualified Code(s): I45.9 - Conduction disorder, unspecified
--- NOTE | 2024-07-13 17:03 | Discharge Summary ---
Discharge Summary Date of Service July 13, 2024 delayed entry date of service noted above Principal Dx & Hospital Course #1 = Principal Diagnosis (1) Syncope and collapse: (2) Bradycardia: (3) Headache: Plan per previous hospitalist's notes with addendum: Plan This is a 53yo M with PMH of GERD who presented to ED for evaluation of syncope. Was lifting weights earlier today at the [facility] and had a witnessed syncopal event as well as prolonged pause (>10 seconds) while in ED. Syncope and collapse Bradycardia, Sinus Node Dysfunction, Status post transvenous pacemaker insertion on 07/10 Presented to ED following syncopal event at gym that occurred while lifting weights Patient noted to have a prolonged pause (>10 sec). Returned to NSR prior to any atropine being given No preceding CP or SOB. Initial troponin negative EKG showed sinus bradycardia with TWI in III and avf (new since Sep 2023 EKG in [facility]) Per Dr. Spence's post cardiac cath report: (07/10/24) 1. Underwent successful insertion of a transvenous pacemaker via the right IJ approach 2. Normal epicardial coronary arteries 3. Continue workup for asystole. Consider permanent pacemaker implantation TSH within normal limits Lyme screen negative Echocardiogram shows EF of 65 to 70% with mild concentric LVH. s/p permanent pacemaker placed 07/12/24 Headache Post-fall, improved since admission Head CTA without acute findings Code status: FULL PCP: Yohannes Notes For Next Care Provider Medication Changes From Visit None Admission HPI Per Admitting Provider This is a 53yo M with PMH of GERD who presented to ED for evaluation of syncope. Was lifting weights earlier today at the [facility] and had a witnessed syncopal event. Endorses some lightheadedness prior to collapse and a headache after coming to. Patient then came to ED for further evaluation and while in ED a code blue was called after a> 10 sec pause with asystole on the monitor. Patient came to on his own and then it occurred again for 8 seconds. Was evaluated by cardiology in ED and bedside echo performed. No CP or SOB but given significant pauses, was taken to cardiac computer laboratory technician for Dr. Spence to place a temporary pacing wire, cardiac cath. Evaluated in 109 following placement of temporary pacer. Feeling well postprocedure. Endorses some inability to take a deep breath but oxygen level okay at 96% on room air. Denies any lightheadedness, headache, palpitations, chest pain, nausea, vomiting, abdominal pain, dysuria, diarrhea or constipation. Non-smoker, drinks 1-2 / night, no h/o withdrawal. Admission Exam Per Admitting Provider General Appearance: WD/WN, vitals as above, NAD, sitting up in bed, pleasant, conversing easily Head: normocephalic, atraumatic Eyes: normal inspection, PERRL, conjunctivae normal, anicteric sclerae ENT: external ear and nose normal, oropharynx normal Neck: normal visual inspection + R IJ wire visualized, dressing c/d/i Respiratory: normal respiratory effort, lungs clear to auscultation, no wheeze, rales, rhonchi. No accessory muscle use Cardiovascular: regular rate, rhythm, no murmur, normal peripheral pulses, no BLE edema. Vessels: no JVD Chest: normal inspection of chest Abdomen/GI: normal bowel sounds, soft, nontender, no hepatosplenomegaly Extremities/Musculoskeletal: no cyanosis or clubbing, extremities motor strength 5/5 Neurologic: PERRL, EOMI, accommodation nl, no face palsy, no dysarthria, CN's II-XI intact bilaterally and moves all extremities Psychiatric: A+Ox3, euthymic affect Skin: no rashes, normal color, warm/dry Discharge Exam General- oriented x 3, not in distress, speaks in sentences with no effort or accessory muscle use Eyes- anicteric Neck- no JVD Lungs- clear breath sounds bilaterally, no rales/wheezes Heart- normal rate, regular rhythm; no murmurs left chest wall pacemaker site: no hematoma no bleeding Abdomen- normal bowel sounds, nondistended, soft, nontender Extremities- no pretibial edema, no calf tenderness Neuro- alert, oriented x 3; no gross focal neurologic deficits Skin- warm & dry Hospital Stay Data Consultations 07/10/24 13:25 ED Decision to Admit Stat 07/10/24 13:43 Consult Cardiology Routine 07/10/24 14:53 Consult Lead Welder Routine Procedures Performed Operation Date: 07/12/24 12:15 Actual Procedures p Pacer with A/V Leads (Dual) - Nery Galaviz DO s Venogram, Unilateral - Nery Galaviz DO Diagnostic Imagining Performed 07/10/24 11:22 CT angio head wo/w Stat CLINICAL HISTORY: syncope, severe headache TECHNIQUE: Contiguous axial CT images of the head were acquired from the base of the skull to the vertex without intravenous contrast administration. CT angiography of the neck was performed following intravenous administration of iodinated contrast. Coronal and sagittal MIPS were obtained from the axial data set and were submitted for review. Automated dose lowering techniques and/or adjustment according to patient size were utilized for this examination. All measurements were calculated based on NASCET criteria. CT DOSE: 737.05 mGy.cm Comparison: None available at the time of this dictation. FINDINGS: CT head: There is no acute intracranial hemorrhage or evidence of acute territorial infarction. No shift of the midline structures, mass effect, or extra-axial abnormalities are shown. CTA Head: The anterior and posterior cerebral circulations are patent. No hemodynamically significant stenosis, aneurysm, dissection, or arteriovenous malformation is shown. IMPRESSION: 1. No acute intracranial hemorrhage, evidence of acute territorial infarction, or other acute intracranial disease process. 2. No occlusion, hemodynamically significant stenosis, aneurysm, dissection, or arteriovenous malformation in the major intracranial arteries. Assessment of stenosis of the internal carotid arteries is based on NASCET criteria. ACT 112: Negative or not required by law. Pending Results Patient Have Any Pending Studies at Discharge: Yes Discharge Instructions Given to Patient (Per Discharging Provider) Device and wound check next week at [facility] Will also arrange f/u with Dr. Galaviz and her nurse practitioner at [facility] within the month Total Time Total Time Spent Total Time Spent (In Minutes): 35 minutes
[2024-07-14 07:58] LABS: Alpha 1 Globulin 0.2 g/dL (0.2-0.3); Alpha 2 Globulin 0.6 g/dL (0.5-0.9); Beta-1-Globulin 0.4 g/dL (0.4-0.6); Beta-2-Globulin 0.3 g/dL (0.2-0.5); Gamma Globulin 0.6 g/dL (0.8-1.7); Monoclonal Protein Band 1 DNR g/dL (NONE DETECTED); Monoclonal Protein Band 2 DNR g/dL (NONE DETECTED); Monoclonal Protein Band 3 DNR g/dL (NONE DETECTED)
--- NOTE | 2024-07-30 14:07 | Operative Report ---
Post Operative Report DICTATED BY:Nery Galaviz D.O. DATE OF PROCEDURE: 07/12/2024 PREOPERATIVE DIAGNOSES: Syncope sinus arrest POSTOPERATIVE DIAGNOSIS: Same PROCEDURE: A dual-chamber rate responsive permanent pacemaker and intracardiac electrogram His bundle recordings, along with a peripheral venogram under fluoroscopic guidance. SURGEON: Nery Galaviz DO ASSISTANTS: None. ANESTHESIA: Monitored conscious sedation administered under my supervision by Florence Hensley. Start time 15:36, end time 16:20, a total of 4 mg of Versed and 100 mcg of fentanyl. INTRAVENOUS FLUIDS: 250 mL. CONTRAST: 12 mL. ANTIBIOTICS: 2 grams of Ancef. ADDITIONAL MEDICATIONS: None BLOOD LOSS: 50 mL. URINE OUTPUT: Not applicable. SPECIMENS: None. FINDINGS: See below. DRAINS: None. COMPLICATIONS: None. CONDITION: Stable. INDICATIONS: This is a 53-year-old gentleman who was admitted to [facility] after a syncopal episode from sinus arrest. He was recommended a dual chamber pacemaker prior to hospital discharge. CONSENT: Consent was obtained prior to the patient going into the electrophysiology lab. The patient was informed of the risks, benefits, and alternatives to the procedure. Risks include, but not limited to, sudden cardiac , cardiac arrhythmias, cerebrovascular accident, myocardial infarction, injury to his blood vessels, chamber of the heart and lung, bleeding and infection. The patient understood these risks and agreed to the procedure as planned. Informed consent was obtained. DESCRIPTION OF PROCEDURE: The patient was brought into electrophysiology lab in a fasting state. He was connected to continuous cardiac monitoring. A timeout was performed to ensure the patient's identity and procedure correctly. He was prepped and draped in the left infraclavicular space in normal surgical standard fashion. Monitored conscious sedation was given throughout the procedure for the patient's comfort level. [place] precautions were maintained throughout the procedure. Prophylactic antibiotics were given prior to incision. A 20 mL of 1% lidocaine and bupivacaine mixture were given in the left deltopectoral groove. An incision was made in the left deltopectoral groove. Blunt dissection was performed down to the pectoralis muscle. Then, using blunt dissection over the pectoralis muscle within the pectoral fascia, a pacemaker pocket was created. Then, a peripheral venogram was performed to identify the axillary vein. Venous axillary access was obtained through a needlestick without any problems. A guidewire was inserted without any resistance. A 6- [place] sheath was inserted over the guidewire without any resistance. Dilator was removed and a second guidewire was inserted through the sheath to allow for retained venous access. Then a 9 [place] sheath was inserted over one of the guidewires. The guidewire and dilator were removed. Then, the [employer] 3D medium sheath was inserted through the 9-Ugandan sheath over a Glidewire into the right ventricle. The Glidewire and dilator were removed. Then, the left bundle lead was advanced th rough the sheath and intracardiac electrogram His bundle recordings were performed when the camera was in BYRNES 10. Once I found where the His bundle is, see below for results, I then moved the camera to BYRNES 30 and marked where the His bundle was on my fluoroscopy screen. I came down about 2 cm from this in a line that would extend out to the apex and then started coming on pacing. Once I found an area where I had a nice W formed pace complex in my lead V1, I then moved the camera to UKRAINIAN 30. Then the helix was extended into the septum. Then the helix locking tool was placed. Then the lead was screwed further into the septum while pacing by giving slow clockwise turns. The paced complex changed to a nice R' in V1 and the pacing stim to peak QRS in V6 was good. I then gave contrast through the sheath to see how far the lead was into the septum and then I slit the [employer] 3D medium sheath under fluoroscopic guidance and left the 9-Ugandan sheath in while I positioned the right atrial lead. A 6-Ugandan sheath was inserted over the retained guidewire, the guidewire and dilator removed. The right atrial lead was then advanced into right atrium and positioned into right atrial appendage under fluoroscopic guidance. There was adequate pacing and sensing thresholds and no diaphragmatic stimulation with high output pacing. The 6-Ugandan sheath was peeled away and the lead was fixated to the pectoralis muscle using 0 silk suture. The 9-[place]gand[place] sheath around the left bundle lead was peeled away and the lead was fixated to pectoralis muscle using 0 silk suture. The pocket was flushed with copious amounts of vancomycin and saline wash and inspected for hemostasis. The leads were then attached to the pulse generator making sure the pins were in appropriate position, passed set screws, and set screws were all tightened. Pulse generator was then placed in the pocket, making sure the leads were lying flat beneath the device. The incision was closed in a 3-layer fashion using 2-0 Vicryl interrupted suture, followed by 3-0 Vicryl interrupted suture, followed by 4-0 Monocryl running stitch. Then a primaseal dressing was placed EQUIPMENT: 1. Pulse generator is a Soriano SJM [employer]urity MRI Model Number [id number] SN: [id number] 2. Right atrial lead, Soriano SJM Tendril STS [id number] SN: [id number] 3. Left bundle lead, Soriano SJM Tendril STS [id number] SN: [id number] INTRAPROCEDURAL FINDINGS: 1. Intracardiac electrogram His bundle recordings, AH is 105 milliseconds, HV is 40 milliseconds. 2. Right atrial lead, P waves 3.8 millivolts, impedance 500 ohms, threshold 1.0 volts at 0.4 milliseconds. 3. Left bundle lead, R waves 7.5 millivolts, impedance 850 ohms, threshold 0.8 volts at 0.4 milliseconds. FINAL MEASUREMENTS THROUGH THE DEVICE: 1. Right atrial lead, P waves 4.9 millivolts, impedance 560 ohms, threshold 0.5 volt at 0.4 milliseconds. 2. Left bundle lead, R waves 10.5 millivolts, impedance 800 ohms, threshold 0.5 volts at 0.4 milliseconds. FINAL PARAMETERS: DDD 60/120, right atrial amplitude 3.5 volts, pulse width 0.4 milliseconds, sensitivity 0.5 millivolts. Left bundle lead amplitude 3.5 volts, pulse width 0.4 milliseconds, sensitivity 2 millivolts. IMPRESSION: Successful dual chamber rate responsive permanent pacemaker under fluoroscopic guidance along with peripheral venogram and intracardiac electrogram His bundle recordings, all under fluoroscopic guidance secondary to syncope due to sinus arrest. PLAN: Monitor the patient post-procedure. A 12-lead ECG, chest x-ray. He is not to lift the left elbow or left shoulder for 1 month. He cannot lift more than 10 pounds with the left arm for 2 weeks. He is to keep the dressing on and dry until his wound check next week.
== END 2024-07-13 13:40 | disposition home or self-care (01) | DRG 242 ==
LOC: ED 10:41 → 1E 13:33 → SUATTDRO 13:43
PROC: CLB.CCO (2024-07-10 13:30)